=== PATIENT | female | born 1945 | race Hispanic/Latino ===

== ENCOUNTER 2017-06-01 11:55 | Emergency (ER) | payer OTHER ==
[~2017-06-01 11:55] MED LIST: ACET-2900 PO; CHOL100034 PO; CHOL100040 PO; CHRO1TAB8 PO; DULA0.75 SQ; FENO160 PO; FENO160T16 PO; FOLI0.8T22 PO; FOLI1TAB85 PO; GLIP5TAB97 PO; GLUC1CAP14 PO; GLUC1TAB21 PO; HYDR-4154 PO; INSREG SQ; NPH,100V11; NPH,100V11 SQ; PRAV20TA4 PO; SPIR25TA PO; SPIR25TA6 PO; TRAM50TA2 PO; TRAM50TA4 PO
[2017-06-01 12:33] LABS: APPEARANCE,URINE Cloudy (CLEAR); BILIRUBIN,URINE Negative (NEGATIVE); COLOR,URINE Red (YELLOW); GLUCOSE, URINE (UA) 250 mg/dL (NEGATIVE); KETONES,URINE Negative (NEGATIVE); LEUKOCYTE ESTERASE ,URINE Trace (NEGATIVE); NITRATE,URINE Negative (NEGATIVE); OCCULT BLOOD,URINE Large (NEGATIVE); PROTEIN,URINE Trace (NEGATIVE); UROBILINOGEN,URINE 0.2 mg/dL (0.2-1.0)
[2017-06-01 12:39] LABS: BASOPHILS % (AUTO) 0.7 % (0.0-5.0); EOSINOPHILS % (AUTO) 1.4 % (0.0-8.0); HEMATOCRIT 33.5 % (36-48); LYMPHOCYTES % (AUTO) 22.9 % (21.0-51.0); MEAN CORPUSCULAR HEMOGLOBIN 31.4 pg (27.0-33.0); MEAN CORPUSCULAR HGB CONC 34.7 g/dL (32.0-36.0); MEAN CORPUSCULAR VOLUME 90.6 fL (79-99); MONOCYTES % (AUTO) 6.1 % (3.0-13.0); NEUTROPHILS % (AUTO) 68.9 % (40.0-77.0); PLATELET COUNT (AUTO) 316 K/uL (130-400); RED CELL DISTRIBUTION WIDTH 13.5 % (11.0-15.5); WHITE BLOOD COUNT (AUTO) 9.3 K/uL (4.8-10.8)
[2017-06-01 12:40] LABS: CREATININE 1.4 mg/dL (0.5-1.5); POTASSIUM 4.9 mmol/L (3.5-5.1)
[2017-06-01 12:53] LABS: ALBUMIN 3.8 g/dL (3.5-5.0); BILIRUBIN,TOTAL 0.4 mg/dL (0.2-1.0); CREATINE KINASE MB 1.9 ng/mL (0.5-3.6); INR 1.02 (0.85-1.15); PARTIAL THROMBOPLASTIN TIME 23.7 SEC (26.3-35.5); PROTHROMBIN TIME 10.7 SEC (9.6-11.6); TOTAL PROTEIN, SERUM 7.8 g/dL (6.0-8.3)
[2017-06-01 13:52] LABS: BACTERIA,URINE Rare /HPF (None Seen); RBC,URINE >100 /HPF (0-1); SQUAMOUS EPITHELIAL CELL,UR Rare /HPF (0-2); WBC,URINE None Seen /HPF (0-1)
[2017-06-01] MEDS ORDERED: LEVOFLOXACIN 500 MG TABLET ONE (15:18)
== END 2017-06-01 15:26 | disposition home or self-care (01) ==
LOC: EDH 11:55
DX: N32.9 Bladder disorder, unspecified (principal); R31.9 Hematuria, unspecified; E11.9 Type 2 diabetes mellitus without complications; I10 Essential (primary) hypertension; E78.5 Hyperlipidemia, unspecified; I25.810 Atherosclerosis of coronary artery bypass graft(s) without angina pectoris; Z95.1 Presence of aortocoronary bypass graft; Z91.041 Radiographic dye allergy status; Z91.040 Latex allergy status; Z88.1 Allergy status to other antibiotic agents
CPT/HCPCS: 36415; 74176; 80053; 81001; 82550; 82553; 84484; 85025; 85610; 85730; 87088; 93005

== ENCOUNTER 2017-12-26 12:36 | Emergency (ER) | payer OTHER ==
[2017-12-26 13:12] LABS: EOSINOPHILS % (AUTO) 1.3 % (0.0-8.0); LYMPHOCYTES % (AUTO) 19.8 % (21.0-51.0); MEAN CORPUSCULAR HEMOGLOBIN 31.6 pg (27.0-33.0); MEAN CORPUSCULAR HGB CONC 34.4 g/dL (32.0-36.0); MONOCYTES % (AUTO) 6.4 % (3.0-13.0); NEUTROPHILS % (AUTO) 71.5 % (40.0-77.0); PLATELET COUNT (AUTO) 250 K/uL (130-400); RED BLOOD CELL COUNT(AUTO) 3.37 MIL/uL (4.00-5.50); RED CELL DISTRIBUTION WIDTH 13.3 % (11.0-15.5); WHITE BLOOD COUNT (AUTO) 9.8 K/uL (4.8-10.8)
[2017-12-26 13:20] LABS: CREATININE 1.4 mg/dL (0.5-1.5); POTASSIUM 4.1 mmol/L (3.5-5.1)
[2017-12-26 13:25] LABS: ALBUMIN 3.3 g/dL (3.5-5.0); BILIRUBIN,TOTAL 0.4 mg/dL (0.2-1.0); TOTAL PROTEIN, SERUM 7.1 g/dL (6.0-8.3)
[2017-12-26 13:33] LABS: B-TYPE NATRIURETIC PEPTIDE 131 pg/mL (0-100)
[2017-12-26] MEDS ORDERED: ALBUTEROL SULFATE 0.083% 2.5 MG/3 ML INH IH ONE (13:48)
== END 2017-12-26 15:51 | disposition home or self-care (01) ==
LOC: EDH 12:36
DX: J20.9 Acute bronchitis, unspecified (principal); R06.00 Dyspnea, unspecified; I25.10 Atherosclerotic heart disease of native coronary artery without angina pectoris; E11.9 Type 2 diabetes mellitus without complications; E78.5 Hyperlipidemia, unspecified; I10 Essential (primary) hypertension; Z95.1 Presence of aortocoronary bypass graft; Z88.1 Allergy status to other antibiotic agents; Z91.041 Radiographic dye allergy status; Z91.040 Latex allergy status
CPT/HCPCS: 36415; 71046; 80053; 83880; 84484; 85025; 87252; 87804; 93005; 94640

== ENCOUNTER 2018-08-31 23:29 | Observation (INO) | payer OTHER ==
[~2018-08-31] VITALS: Ht 152.4 cm; Wt 97.5 kg
[~2018-08-31 23:29] MED LIST changes: +ALBU1.252 IH; +AMOX1TAB16 PO; +ASCO500T96 PO; +ATOR10TA69 PO; +CARV6.25 PO; -CHOL100034 PO; -CHRO1TAB8 PO; +CLOP75TA32 PO; -DULA0.75 SQ; -FENO160 PO; +FERR-82 PO; -FOLI1TAB85 PO; +FURO20TA4 PO; +GLIP10TA19 PO; -GLIP5TAB97 PO; -GLUC1TAB21 PO; -HYDR-4154 PO; -INSREG SQ; +INSU100I35 SQ; +LOSA50TA64 PO; -NPH,100V11; -NPH,100V11 SQ; -PRAV20TA4 PO; +PRED20B PO; -SPIR25TA PO; -SPIR25TA6 PO; -TRAM50TA4 PO
[2018-09-01 00:15] LABS: BASOPHILS % (AUTO) 2.6 % (0.0-5.0); EOSINOPHILS % (AUTO) 3.2 % (0.0-8.0); HEMATOCRIT 31.6 % (36-48); LYMPHOCYTES % (AUTO) 16.7 % (21.0-51.0); MEAN CORPUSCULAR HEMOGLOBIN 31.1 pg (27.0-33.0); MEAN CORPUSCULAR HGB CONC 33.5 g/dL (32.0-36.0); MEAN CORPUSCULAR VOLUME 92.7 fL (79-99); MONOCYTES % (AUTO) 7.7 % (3.0-13.0); NEUTROPHILS % (AUTO) 69.8 % (40.0-77.0); PLATELET COUNT (AUTO) 224 K/uL (130-400); RED CELL DISTRIBUTION WIDTH 13.6 % (11.0-15.5); WHITE BLOOD COUNT (AUTO) 10.2 K/uL (4.8-10.8)
[2018-09-01 00:17] LABS: APPEARANCE,URINE Clear (CLEAR); BILIRUBIN,URINE Negative (NEGATIVE); COLOR,URINE Yellow (YELLOW); GLUCOSE, URINE (UA) >=1000 mg/dL (NEGATIVE); KETONES,URINE Negative (NEGATIVE); LEUKOCYTE ESTERASE ,URINE Negative (NEGATIVE); NITRATE,URINE Negative (NEGATIVE); OCCULT BLOOD,URINE Negative (NEGATIVE); PH,URINE 6.5 (5.0-8.0); PROTEIN,URINE Negative (NEGATIVE)
[2018-09-01 00:22] LABS: CREATININE 1.4 mg/dL (0.5-1.5); POTASSIUM 4.4 mmol/L (3.5-5.1)
[2018-09-01 00:40] LABS: BILIRUBIN,TOTAL 0.3 mg/dL (0.2-1.0)
[2018-09-01 00:41] LABS: ALBUMIN 3.5 g/dL (3.5-5.0); TOTAL PROTEIN, SERUM 7.7 g/dL (6.0-8.3)
[2018-09-01 00:48] LABS: INR 1.03 (0.85-1.15); PARTIAL THROMBOPLASTIN TIME 21.1 SEC (26.3-35.5); PROTHROMBIN TIME 10.8 SEC (9.6-11.6)
[2018-09-01] MEDS ORDERED: ASPIRIN 325 MG TABLET ONE (01:33)
[2018-09-01] MEDS ORDERED: INSULIN HUMULIN R 100 UNIT/ML 3ML ONE (01:56)
[2018-09-01 03:30] VITALS: BP 139/64
[2018-09-01 04:41] LABS: HEMATOCRIT 30.5 % (36-48); MEAN CORPUSCULAR HEMOGLOBIN 31.7 pg (27.0-33.0); MEAN CORPUSCULAR HGB CONC 34.1 g/dL (32.0-36.0); MEAN CORPUSCULAR VOLUME 93.1 fL (79-99); PLATELET COUNT (AUTO) 235 K/uL (130-400); RED BLOOD CELL COUNT(AUTO) 3.28 MIL/uL (4.00-5.50); RED CELL DISTRIBUTION WIDTH 13.4 % (11.0-15.5); WHITE BLOOD COUNT (AUTO) 10.9 K/uL (4.8-10.8)
[2018-09-01 05:04] LABS: ALBUMIN 3.4 g/dL (3.5-5.0); BILIRUBIN,TOTAL 0.4 mg/dL (0.2-1.0); CREATININE 1.3 mg/dL (0.5-1.5); PHOSPHORUS 2.7 mg/dL (2.5-4.9); POTASSIUM 4.2 mmol/L (3.5-5.1); TOTAL PROTEIN, SERUM 7.1 g/dL (6.0-8.3)
[2018-09-01] MEDS ORDERED: ACETAMINOPHEN 325 MG TAB PO PRN (05:15)
[2018-09-01] MEDS ORDERED: NITROGLYCERIN 0.4 MG SL TAB SL PRN (05:30)
[2018-09-01] MEDS ORDERED: ONDANSETRON HCL 4 MG/2 ML VIAL IVP PRN (05:30)
[2018-09-01] MEDS ORDERED: IPRATROPIUM/ALBUTEROL SULFATE 3 ML SOLUTION IH PRN (06:15)
[2018-09-01 08:00] VITALS: BP 140/59
[2018-09-01] MEDS ORDERED: ASPIRIN 325 MG TABLET PO SCH (09:00)
[2018-09-01] MEDS ORDERED: MAGNESIUM 2GM PREMIX 50ML 50 ML IV PRN (11:30)
[2018-09-01 12:00] VITALS: BP 108/48
[2018-09-01] MEDS ORDERED: ACETAMINOPHEN EXTENDED RELEASE 650 MG TABLET PO PRN (12:00)
[2018-09-01] MEDS ORDERED: TRAMADOL HCL 50 MG TABLET PO PRN (12:00)
[2018-09-01] MEDS ORDERED: ALBUTEROL SULFATE 0.042% 1.25 MG/3 ML INH IH PRN (12:15)
[2018-09-01] MEDS ORDERED: IBUPROFEN 600 MG TABLET PO ONE ×2 (14:00→14:15)
[2018-09-01] MEDS ORDERED: NAPROXEN 250 MG TAB PO PRN (14:00)
[2018-09-01 16:00] VITALS: BP 138/59
[2018-09-01] MEDS ORDERED: INSULIN HUMULIN 70/30 100 UNIT/ML 3ML SQ SCH (16:30)
--- NOTE | 2018-09-01 18:00 | NUR ---
DISCHARGE INSTRUCTIONS GIVEN. PATIENT MAG AT 2.10. PATIENT VOICES NO COMPLAINT OF CHEST PAIN . INSTRUCTED TO FOLLOW UP WITH PCP AND MARKETING REPS SPORTS AND ENTERTAINMENT . ALL QUESTIONS ANSWERED.. IV DISCONTINUED WITH INNER CANNULA INTACT. .
[2018-09-01] MEDS ORDERED: CLOPIDOGREL BISULFATE 75 MG TAB PO SCH (21:00)
[2018-09-01] MEDS ORDERED: CARVEDILOL 6.25 MG TABLET PO SCH (21:00)
[2018-09-01] MEDS ORDERED: ATORVASTATIN CALCIUM 10 MG TABLET PO SCH (21:00)
[2018-09-02] MEDS ORDERED: GLIPIZIDE XL 10MG TAB PO SCH (07:30)
[2018-09-02] MEDS ORDERED: FOLIC ACID/VITAMIN B COMP W-C 1 MG CAP/TAB PO SCH (09:00)
[2018-09-02] MEDS ORDERED: ASCORBIC ACID 500 MG TAB PO SCH (09:00)
[2018-09-02] MEDS ORDERED: GLUCOSAMINE-CHONDROITIN PO SCH (09:00)
[2018-09-02] MEDS ORDERED: **HM** FENOFIBRATE 160MG PO SCH (09:00)
[2018-09-02] MEDS ORDERED: FERROUS SULFATE 325 MG TABLET.DR PO SCH (09:00)
[2018-09-02] MEDS ORDERED: FUROSEMIDE 20 MG TABLET PO SCH (09:00)
[2018-09-02] MEDS ORDERED: **HM** VIT D3 1000 UNITS PO SCH (09:00)
[2018-09-02] MEDS ORDERED: LOSARTAN 50 MG TABLET PO SCH (09:00)
== END 2018-09-01 18:15 | disposition home or self-care (01) ==
LOC: EDH 23:29 → EDHIP 09-01 01:19 → 3DH 09-01 04:12
PROVIDERS: ADMIT Internal Medicine Critical Care Medicine; ATTEND Internal Medicine Critical Care Medicine
DX: R07.89 Other chest pain (principal); E11.9 Type 2 diabetes mellitus without complications; E66.9 Obesity, unspecified; E78.5 Hyperlipidemia, unspecified; I10 Essential (primary) hypertension; I25.10 Atherosclerotic heart disease of native coronary artery without angina pectoris; I44.4 Left anterior fascicular block; M79.7 Fibromyalgia; Z95.1 Presence of aortocoronary bypass graft; Z79.899 Other long term (current) drug therapy
CPT/HCPCS: 36415 ×2; 71045; 80053 ×2; 81003; 82550; 82948 ×3; 83735 ×2; 83874; 84100; 84484 ×3; 85025; 85027; 85610; 85730; 93005; 94640; 94664; 96365; 96366; 96372; 99284; G0378 ×16; J1815 ×2; J3475

== ENCOUNTER 2018-12-01 11:30 | Emergency (ER) | payer OTHER ==
[~2018-12-01 11:30] MED LIST changes: -ACET-2900 PO; +ACET-3194 PO
[2018-12-01 11:54] LABS: APPEARANCE,URINE TURBID (CLEAR); BILIRUBIN,URINE MODERATE (NEGATIVE); COLOR,URINE RED (YELLOW); GLUCOSE, URINE (UA) NEGATIVE (NEGATIVE); KETONES,URINE 15 mg/dL (NEGATIVE); LEUKOCYTE ESTERASE ,URINE MODERATE (NEGATIVE); NITRATE,URINE POSITIVE (NEGATIVE); OCCULT BLOOD,URINE LARGE (NEGATIVE); PH,URINE 6.5 (5.0-8.0); PROTEIN,URINE >=300 mg/dL (NEGATIVE)
[2018-12-01 12:18] LABS: BASOPHILS % (AUTO) 0.7 % (0.0-5.0); EOSINOPHILS % (AUTO) 2.1 % (0.0-8.0); HEMATOCRIT 33.1 % (36-48); LYMPHOCYTES % (AUTO) 16.8 % (21.0-51.0); MEAN CORPUSCULAR HEMOGLOBIN 31.7 pg (27.0-33.0); MEAN CORPUSCULAR HGB CONC 34.3 g/dL (32.0-36.0); MEAN CORPUSCULAR VOLUME 92.5 fL (79-99); MONOCYTES % (AUTO) 6.1 % (3.0-13.0); NEUTROPHILS % (AUTO) 74.3 % (40.0-77.0); PLATELET COUNT (AUTO) 238 K/uL (130-400); RED BLOOD CELL COUNT(AUTO) 3.58 MIL/uL (4.00-5.50); RED CELL DISTRIBUTION WIDTH 13.6 % (11.0-15.5); WHITE BLOOD COUNT (AUTO) 11.2 K/uL (4.8-10.8)
[2018-12-01 12:21] LABS: RBC,URINE TNTC /HPF (0-1)
[2018-12-01 12:25] LABS: BACTERIA,URINE Rare /HPF (None Seen)
[2018-12-01 12:26] LABS: SQUAMOUS EPITHELIAL CELL,UR Rare /HPF (0-2)
[2018-12-01 12:28] LABS: CREATININE 1.1 mg/dL (0.5-1.5); POTASSIUM 4.2 mmol/L (3.5-5.1)
[2018-12-01 12:30] LABS: INR 1.01 (0.85-1.15); PARTIAL THROMBOPLASTIN TIME 24.3 SEC (26.3-35.5); PROTHROMBIN TIME 10.6 SEC (9.6-11.6)
[2018-12-01 12:33] LABS: ALBUMIN 3.5 g/dL (3.5-5.0); BILIRUBIN,TOTAL 0.4 mg/dL (0.2-1.0); TOTAL PROTEIN, SERUM 7.7 g/dL (6.0-8.3)
== END 2018-12-01 17:04 | disposition home or self-care (01) ==
LOC: EDH 11:30
DX: N39.0 Urinary tract infection, site not specified (principal); R31.9 Hematuria, unspecified; E11.9 Type 2 diabetes mellitus without complications; E78.5 Hyperlipidemia, unspecified; I10 Essential (primary) hypertension; I25.10 Atherosclerotic heart disease of native coronary artery without angina pectoris; Z95.1 Presence of aortocoronary bypass graft; Z88.1 Allergy status to other antibiotic agents; Z91.041 Radiographic dye allergy status; Z91.040 Latex allergy status; Z72.0 Tobacco use
CPT/HCPCS: 36415; 74176; 80053; 81001; 85025; 85610; 85730; 87088

== ENCOUNTER 2018-12-02 17:58 | Emergency (ER) | payer OTHER | END 2018-12-02 23:44 | disposition home or self-care (01) | LOC: EDH 17:58 | DX: R33.9 Retention of urine, unspecified (principal); E11.9 Type 2 diabetes mellitus without complications; I10 Essential (primary) hypertension; I25.10 Atherosclerotic heart disease of native coronary artery without angina pectoris; E78.5 Hyperlipidemia, unspecified; Z88.1 Allergy status to other antibiotic agents; Z91.041 Radiographic dye allergy status; Z91.040 Latex allergy status | CPT/HCPCS: 51702; 82948 ==

== ENCOUNTER 2019-02-15 16:41 | Emergency (ER) | payer OTHER ==
[2019-02-15 17:19] LABS: BASOPHILS % (AUTO) 0.4 % (0.0-5.0); EOSINOPHILS % (AUTO) 2.6 % (0.0-8.0); LYMPHOCYTES % (AUTO) 18.6 % (21.0-51.0); MEAN CORPUSCULAR HGB CONC 32.4 g/dL (32.0-36.0); MEAN CORPUSCULAR VOLUME 92.6 fL (79-99); MONOCYTES % (AUTO) 7.7 % (3.0-13.0); NEUTROPHILS % (AUTO) 70.3 % (40.0-77.0); PLATELET COUNT (AUTO) 205 K/uL (130-400); RED BLOOD CELL COUNT(AUTO) 3.67 MIL/uL (4.00-5.50); RED CELL DISTRIBUTION WIDTH 12.8 % (11.0-15.5); WHITE BLOOD COUNT (AUTO) 9.2 K/uL (4.8-10.8)
[2019-02-15 17:40] LABS: PARTIAL THROMBOPLASTIN TIME 24.7 SEC (26.3-35.5); PROTHROMBIN TIME 10.5 SEC (9.6-11.6)
[2019-02-15 17:41] LABS: ALBUMIN 3.2 g/dL (3.5-5.0); BILIRUBIN,TOTAL 0.5 mg/dL (0.2-1.0); TOTAL PROTEIN, SERUM 7.1 g/dL (6.0-8.3)
== END 2019-02-15 19:34 | disposition home or self-care (01) ==
LOC: EDH 16:41
DX: M79.662 Pain in left lower leg (principal); Z87.2 Personal history of diseases of the skin and subcutaneous tissue; I10 Essential (primary) hypertension; E11.9 Type 2 diabetes mellitus without complications; I25.10 Atherosclerotic heart disease of native coronary artery without angina pectoris; E78.5 Hyperlipidemia, unspecified; M79.7 Fibromyalgia; Z91.040 Latex allergy status; Z88.1 Allergy status to other antibiotic agents
CPT/HCPCS: 36415; 80053; 85025; 85610; 85730; 93971

== ENCOUNTER 2019-08-02 16:04 | Emergency (ER) | payer OTHER ==
[2019-08-02] MEDS ORDERED: ALBUTEROL SULFATE 0.083% 2.5 MG/3 ML INH IH ONE (16:49)
[2019-08-02 17:00] LABS: BASOPHILS % (AUTO) 0.6 % (0.0-5.0); EOSINOPHILS % (AUTO) 2.6 % (0.0-8.0); HEMATOCRIT 36.8 % (36-48); LYMPHOCYTES % (AUTO) 15.3 % (21.0-51.0); MEAN CORPUSCULAR HEMOGLOBIN 30.4 pg (27.0-33.0); MEAN CORPUSCULAR HGB CONC 33.2 g/dL (32.0-36.0); MEAN CORPUSCULAR VOLUME 91.8 fL (79-99); MONOCYTES % (AUTO) 8.4 % (3.0-13.0); NEUTROPHILS % (AUTO) 72.4 % (40.0-77.0); PLATELET COUNT (AUTO) 225 K/uL (130-400); RED BLOOD CELL COUNT(AUTO) 4.01 MIL/uL (4.00-5.50); RED CELL DISTRIBUTION WIDTH 12.8 % (11.0-15.5)
[2019-08-02 17:01] LABS: CREATININE 1.1 mg/dL (0.5-1.5); POTASSIUM 4.2 mmol/L (3.5-5.1)
== END 2019-08-02 18:45 | disposition home or self-care (01) ==
LOC: EDH 16:04
DX: J20.8 Acute bronchitis due to other specified organisms (principal); R42 Dizziness and giddiness; E11.9 Type 2 diabetes mellitus without complications; E78.5 Hyperlipidemia, unspecified; I10 Essential (primary) hypertension; I25.10 Atherosclerotic heart disease of native coronary artery without angina pectoris; Z91.041 Radiographic dye allergy status; Z91.040 Latex allergy status; Z88.1 Allergy status to other antibiotic agents
CPT/HCPCS: 36415; 70450; 71046; 80048; 82948; 84484; 85025; 93005; 94640

== ENCOUNTER → 2019-10-02 | Outpatient (CLI) | payer OTHER | END | disposition home or self-care (01) | LOC: SHCH 13:19 | PROVIDERS: ATTEND Internal Medicine Cardiovascular Disease | DX: I34.0 Nonrheumatic mitral (valve) insufficiency (principal); I50.32 Chronic diastolic (congestive) heart failure; R60.9 Edema, unspecified | CPT/HCPCS: 93306; 93971 ==

== ENCOUNTER → 2020-07-01 | Outpatient (CLI) | payer OTHER | END | disposition home or self-care (01) | LOC: SHCH 10:24 | PROVIDERS: ATTEND Internal Medicine Cardiovascular Disease | DX: I87.2 Venous insufficiency (chronic) (peripheral) (principal) | CPT/HCPCS: 93970 ==

== ENCOUNTER 2020-07-11 22:46 | Inpatient (IN) | payer OTHER ==
[~2020-07-11] VITALS: Ht 152.4 cm; Wt 97.0 kg
[2020-07-11 23:08] LABS: BASOPHILS % (AUTO) 0.7 % (0.0-5.0); EOSINOPHILS % (AUTO) 2.6 % (0.0-8.0); HEMATOCRIT 35.2 % (36-48); MEAN CORPUSCULAR HEMOGLOBIN 29.9 pg (27.0-33.0); MEAN CORPUSCULAR HGB CONC 32.1 g/dL (32.0-36.0); MEAN CORPUSCULAR VOLUME 93.1 fL (79-99); NEUTROPHILS % (AUTO) 70.2 % (40.0-77.0); PLATELET COUNT (AUTO) 239 K/uL (130-400); RED BLOOD CELL COUNT(AUTO) 3.78 MIL/uL (4.00-5.50); RED CELL DISTRIBUTION WIDTH 13.5 % (11.0-15.5); WHITE BLOOD COUNT (AUTO) 12.1 K/uL (4.8-10.8)
[2020-07-11 23:15] LABS: CREATININE 1.4 mg/dL (0.5-1.5); INR 0.99 (0.85-1.15); POTASSIUM 5.3 mmol/L (3.5-5.1); PROTHROMBIN TIME 10.8 SEC (9.6-11.6)
[2020-07-11 23:16] LABS: PARTIAL THROMBOPLASTIN TIME 24.1 SEC (26.3-35.5)
[2020-07-11 23:20] LABS: ALBUMIN 3.5 g/dL (3.5-5.0); BILIRUBIN,TOTAL 0.2 mg/dL (0.2-1.0); TOTAL PROTEIN, SERUM 7.9 g/dL (6.0-8.3)
[2020-07-12 00:25] LABS: APPEARANCE,URINE Clear (CLEAR); BILIRUBIN,URINE Negative (NEGATIVE); COLOR,URINE Yellow (YELLOW); GLUCOSE, URINE (UA) 500 mg/dL (NEGATIVE); KETONES,URINE Negative (NEGATIVE); LEUKOCYTE ESTERASE ,URINE Negative (NEGATIVE); NITRATE,URINE Negative (NEGATIVE); OCCULT BLOOD,URINE Negative (NEGATIVE); PH,URINE 6.5 (5.0-8.0); PROTEIN,URINE Negative (NEGATIVE)
[2020-07-12 00:42] LABS: BACTERIA,URINE None Seen /HPF (None Seen); RBC,URINE None Seen /HPF (0-1); SQUAMOUS EPITHELIAL CELL,UR Rare /HPF (0-2); WBC,URINE None Seen /HPF (0-1); YEAST,URINE BUDDING None Seen /HPF (None Seen)
[2020-07-12] MEDS ORDERED: ZOLPIDEM TARTRATE 5 MG TAB PO PRN (05:30)
[2020-07-12] MEDS ORDERED: MORPHINE SULFATE 2 MG/ML 1ML SYG IV PRN (05:30)
[2020-07-12] MEDS ORDERED: ONDANSETRON HCL 4 MG/2 ML VIAL IV PRN (05:30)
[2020-07-12] MEDS ORDERED: GUAIFENESIN-DM 200/20 MG 10 ML PO PRN (05:30)
[2020-07-12] MEDS ORDERED: ACETAMINOPHEN 325 MG TAB PO PRN ×2 (05:30)
[2020-07-12] MEDS: NITROGLYCERIN 1GM/1 INCH PACKET TD SCH ×4 (05:30→23:51)
[2020-07-12] MEDS ORDERED: NITROGLYCERIN 0.4 MG SL TAB SL PRN (05:30)
[2020-07-12] MEDS ORDERED: VANCOMYCIN 1GM+NS 250ML 250 ML IV SCH ×2 (05:45→08:15)
[2020-07-12] MEDS ORDERED: SODIUM CHLORIDE 0.9% 250 ML IV SCH (08:15)
[2020-07-12] MEDS ORDERED: ASPIRIN 325 MG TABLET PO SCH (09:00)
[2020-07-12 10:06] LABS: POTASSIUM 4.8 mmol/L (3.5-5.1)
[2020-07-12] MEDS ORDERED: METO-408 PO (10:24)
[2020-07-12] MEDS ORDERED: FOLI1TAB85 PO (10:24)
[2020-07-12] MEDS ORDERED: LOSA50TA64 PO (10:24)
[2020-07-12] MEDS ORDERED: ACET-2521 PO (11:38)
[2020-07-12] MEDS ORDERED: FURO40TA5 PO (11:38)
[2020-07-12] MEDS ORDERED: FLUT16H NS (11:38)
[2020-07-12] MEDS ORDERED: NPH,100V11 SQ (11:38)
[2020-07-12] MEDS ORDERED: AEC81 PO (11:38)
[2020-07-12] MEDS ORDERED: [UNRECOGNIZED DRUG - CODE] PO (11:38)
[2020-07-12] MEDS ORDERED: TRAM50TA4 PO (11:38)
[2020-07-12] MEDS ORDERED: IPRA3AMP24 IH (11:38)
[2020-07-12] MEDS ORDERED: CHOL100040 PO (11:38)
[2020-07-12] MEDS ORDERED: FERR-82 PO (11:38)
[2020-07-12] MEDS ORDERED: ATOR10 PO (11:38)
[2020-07-12] MEDS ORDERED: ASCO250T70 PO (11:38)
[2020-07-12] MEDS ORDERED: ASPIRIN 81MG TAB.CHEW ONE (11:41)
[2020-07-12] MEDS ORDERED: ACETAMINOPHEN EXTENDED RELEASE 650 MG TABLET PO PRN (11:45)
[2020-07-12] MEDS ORDERED: IPRATROPIUM/ALBUTEROL SULFATE 3 ML SOLUTION IH SCH (11:45)
[2020-07-12] MEDS: ENOXAPARIN SODIUM 40 MG/0.4 ML SYRINGE SQ SCH (11:47)
[2020-07-12] MEDS: FAMOTIDINE/PF 20 MG/2 ML VIAL IV SCH (11:47)
[2020-07-12] MEDS ORDERED: ASCORBIC ACID 500 MG TAB PO SCH (13:02)
[2020-07-12 13:24] VITALS: BP 126/60
[2020-07-12] MEDS: FLUTICASONE PROPIONATE 50MCG/SPRAY 16 GM BOTTLE NS SCH (14:04)
[2020-07-12] MEDS: ZOSYN 3.375GM+NS 50ML 50 ML IV SCH ×2 (14:04→19:52)
[2020-07-12] MEDS: ***HM***(Cholecalciferol (Vitamin D3) (Vitamin D3) 1,000 UNIT) PO SCH (14:05)
[2020-07-12 16:35] VITALS: BP 130/41
[2020-07-12] MEDS: INSULIN HUMULIN 70/30 100 UNIT/ML 3ML SQ SCH (17:26)
[2020-07-12 19:05] VITALS: BP 139/95
[2020-07-12] MEDS ORDERED: CLOPIDOGREL BISULFATE 75 MG TAB ONE (19:30)
[2020-07-12] MEDS ORDERED: CARVEDILOL 6.25 MG TABLET PO ONE (19:31)
[2020-07-12] MEDS ORDERED: ATORVASTATIN CALCIUM 20 MG TABLET ONE (19:31)
[2020-07-12] MEDS: CARVEDILOL 6.25 MG TABLET PO SCH (19:51)
[2020-07-12] MEDS: ATORVASTATIN CALCIUM 10 MG TABLET PO SCH (19:52)
[2020-07-12] MEDS: FENOFIBRATE 160 MG PO SCH (19:52)
[2020-07-12] MEDS: CLOPIDOGREL BISULFATE 75 MG TAB PO SCH (19:53)
[2020-07-12] MEDS: TRAMADOL HCL 50 MG TABLET PO SCH (19:53)
[2020-07-12] MEDS ORDERED: SODIUM CHLORIDE 0.9% 250 ML IV ONE (22:32)
[2020-07-12] MEDS: IPRATROPIUM/ALBUTEROL SULFATE 3 ML SOLUTION IH SCH (23:17)
[2020-07-12 23:31] VITALS: BP 119/60
[2020-07-12] MEDS: VANCOMYCIN 1GM+NS 250ML 250 ML IV SCH (23:41)
[2020-07-13 03:20] VITALS: BP 124/53
[2020-07-13] MEDS: ZOSYN 3.375GM+NS 50ML 50 ML IV SCH ×3 (03:51→20:42)
[2020-07-13 03:57] LABS: CREATININE 1.1 mg/dL (0.5-1.5); POTASSIUM 4.9 mmol/L (3.5-5.1)
[2020-07-13 05:15] LABS: HEMATOCRIT 32.2 % (36-48); MEAN CORPUSCULAR HGB CONC 32.6 g/dL (32.0-36.0); RED BLOOD CELL COUNT(AUTO) 3.39 MIL/uL (4.00-5.50); RED CELL DISTRIBUTION WIDTH 13.3 % (11.0-15.5); WHITE BLOOD COUNT (AUTO) 9.4 K/uL (4.8-10.8)
[2020-07-13] MEDS ORDERED: FERROUS SULFATE 325 MG TABLET.DR ONE (05:34)
[2020-07-13] MEDS: FERROUS SULFATE 325 MG TABLET.DR PO SCH (06:04)
[2020-07-13] MEDS: INSULIN HUMULIN 70/30 100 UNIT/ML 3ML SQ SCH ×2 (06:04→16:22)
[2020-07-13] MEDS: IPRATROPIUM/ALBUTEROL SULFATE 3 ML SOLUTION IH SCH ×4 (06:51→23:50)
[2020-07-13 07:30] VITALS: BP 116/52
[2020-07-13] MEDS: FAMOTIDINE/PF 20 MG/2 ML VIAL IV SCH (08:39)
[2020-07-13] MEDS: LOSARTAN 50 MG TABLET PO SCH (08:39)
[2020-07-13] MEDS: ASPIRIN 81 MG EC TAB PO SCH (08:39)
[2020-07-13] MEDS: FUROSEMIDE 40 MG TABLET PO SCH (08:39)
[2020-07-13] MEDS: ASCORBIC ACID 500 MG TAB PO SCH (08:40)
[2020-07-13] MEDS: CARVEDILOL 6.25 MG TABLET PO SCH ×2 (08:41→20:44)
[2020-07-13] MEDS: Vitamin B Complex/Vit C/Folic Acid PO SCH (08:42)
[2020-07-13] MEDS: GLUCOSAMINE-CHONDROITIN PO SCH (08:42)
[2020-07-13] MEDS: ENOXAPARIN SODIUM 40 MG/0.4 ML SYRINGE SQ SCH (08:42)
[2020-07-13] MEDS: ***HM***(Cholecalciferol (Vitamin D3) (Vitamin D3) 1,000 UNIT) PO SCH (08:49)
[2020-07-13] MEDS ORDERED: NON-FORMULARY MEDICATION 1 EACH (Vit B Cmplx 3/FA/Vit C/Biotin (Rena-Vite Rx Tablet) 1 EAC PO SCH (09:00)
[2020-07-13] MEDS: FLUTICASONE PROPIONATE 50MCG/SPRAY 16 GM BOTTLE NS SCH (09:00)
[2020-07-13] MEDS ORDERED: PREDNISONE 20 MG TABLET PO SCH (09:00)
[2020-07-13] MEDS ORDERED: METOPROLOL SUCCINATE 50 MG TAB.SR.24H PO SCH (09:00)
[2020-07-13 11:00] VITALS: BP 120/56
[2020-07-13] MEDS: NITROGLYCERIN 1GM/1 INCH PACKET TD SCH ×2 (13:09→21:30)
[2020-07-13 16:00] VITALS: BP 120/52
[2020-07-13] MEDS ORDERED: SODIUM CHLORIDE 0.9% 250 ML IV ONE (17:12)
[2020-07-13] MEDS: PREDNISONE 20 MG TABLET PO SCH ×2 (17:14→20:43)
[2020-07-13] MEDS: MONTELUKAST SODIUM 10 MG TAB PO SCH (17:14)
[2020-07-13] MEDS: VANCOMYCIN 1GM+NS 250ML 250 ML IV SCH (17:15)
[2020-07-13 20:28] VITALS: BP 130/59
[2020-07-13] MEDS: CLOPIDOGREL BISULFATE 75 MG TAB PO SCH (20:43)
[2020-07-13] MEDS: ATORVASTATIN CALCIUM 10 MG TABLET PO SCH (20:43)
[2020-07-13] MEDS: DOCUSATE SODIUM 100 MG CAP PO SCH (20:43)
[2020-07-13] MEDS: TRAMADOL HCL 50 MG TABLET PO SCH (20:44)
[2020-07-13] MEDS ORDERED: DEXTROSE 50%-WATER 50 ML DISP.SYRIN IV PRN (20:45)
[2020-07-13] MEDS ORDERED: GLUCAGON 1MG KIT 1 MG ML IM PRN (20:45)
[2020-07-13] MEDS ORDERED: INSULIN HUMULIN R 100 UNIT/ML 3ML SQ SCH (21:00)
[2020-07-13] MEDS: FENOFIBRATE 160 MG PO SCH (21:00)
[2020-07-13 23:48] VITALS: BP 120/72
[2020-07-14] VITALS (7 sets, daily range): BP systolic 109–149; BP diastolic 50–78
[2020-07-14 04:15] LABS: HEMATOCRIT 32.2 % (36-48); MEAN CORPUSCULAR HEMOGLOBIN 30.3 pg (27.0-33.0); MEAN CORPUSCULAR HGB CONC 32.9 g/dL (32.0-36.0); RED BLOOD CELL COUNT(AUTO) 3.5 MIL/uL (4.00-5.50); RED CELL DISTRIBUTION WIDTH 13.2 % (11.0-15.5); WHITE BLOOD COUNT (AUTO) 11.9 K/uL (4.8-10.8)
[2020-07-14 04:29] LABS: CREATININE 1.4 mg/dL (0.5-1.5)
[2020-07-14] MEDS: NITROGLYCERIN 1GM/1 INCH PACKET TD SCH ×4 (05:30→21:17)
[2020-07-14] MEDS: IPRATROPIUM/ALBUTEROL SULFATE 3 ML SOLUTION IH SCH ×3 (05:59→18:19)
[2020-07-14] MEDS: ZOSYN 3.375GM+NS 50ML 50 ML IV SCH ×3 (06:25→21:11)
[2020-07-14] MEDS: INSULIN HUMULIN 70/30 100 UNIT/ML 3ML SQ SCH ×2 (07:30→16:39)
[2020-07-14] MEDS: FERROUS SULFATE 325 MG TABLET.DR PO SCH (08:00)
[2020-07-14] MEDS: FLUTICASONE PROPIONATE 50MCG/SPRAY 16 GM BOTTLE NS SCH (09:00)
[2020-07-14] MEDS: MONTELUKAST SODIUM 10 MG TAB PO SCH (09:00)
[2020-07-14] MEDS ORDERED: SODIUM CHLORIDE 0.9% 1000ML 1,000 ML IV SCH (09:00)
[2020-07-14] MEDS: GLUCOSAMINE-CHONDROITIN PO SCH (09:00)
[2020-07-14] MEDS: Vitamin B Complex/Vit C/Folic Acid PO SCH (09:00)
[2020-07-14] MEDS: ***HM***(Cholecalciferol (Vitamin D3) (Vitamin D3) 1,000 UNIT) PO SCH (09:00)
[2020-07-14] MEDS: ASCORBIC ACID 500 MG TAB PO SCH (09:00)
[2020-07-14] MEDS: DOCUSATE SODIUM 100 MG CAP PO SCH ×2 (09:00→21:11)
[2020-07-14] MEDS: FUROSEMIDE 40 MG TABLET PO SCH (09:00)
[2020-07-14] MEDS ORDERED: SODIUM CHLORIDE 0.9% 250 ML IV ONE (10:41)
[2020-07-14] MEDS: VANCOMYCIN 1GM+NS 250ML 250 ML IV SCH (10:43)
[2020-07-14] MEDS: FAMOTIDINE/PF 20 MG/2 ML VIAL IV SCH (10:44)
[2020-07-14] MEDS: ASPIRIN 81 MG EC TAB PO SCH (10:44)
[2020-07-14] MEDS: DiphenhydrAMINE HCL 50 MG/ML VIAL IM SCH (10:44)
[2020-07-14] MEDS: PREDNISONE 20 MG TABLET PO SCH ×3 (10:44→21:12)
[2020-07-14] MEDS: ENOXAPARIN SODIUM 40 MG/0.4 ML SYRINGE SQ SCH (10:44)
[2020-07-14] MEDS: CARVEDILOL 6.25 MG TABLET PO SCH ×2 (10:45→21:13)
[2020-07-14] MEDS: LOSARTAN 50 MG TABLET PO SCH (10:45)
[2020-07-14] MEDS ORDERED: IOHEXOL-350 50ML VIAL IV ONE (13:41)
[2020-07-14] MEDS ORDERED: IOHEXOL 350 MG/ML 100ML INFUS..BTL IV ONE (13:41)
[2020-07-14] MEDS ORDERED: DiphenhydrAMINE HCL 50 MG/ML VIAL IV SCH (16:15)
[2020-07-14] MEDS: TRAMADOL HCL 50 MG TABLET PO SCH (21:00)
[2020-07-14] MEDS: FENOFIBRATE 160 MG PO SCH (21:00)
[2020-07-14] MEDS: VANCOMYCIN 500MG+NS 100ML 100 ML IV SCH (21:11)
[2020-07-14] MEDS: CLOPIDOGREL BISULFATE 75 MG TAB PO SCH (21:12)
[2020-07-14] MEDS: ATORVASTATIN CALCIUM 10 MG TABLET PO SCH (21:13)
[2020-07-15] MEDS: IPRATROPIUM/ALBUTEROL SULFATE 3 ML SOLUTION IH SCH ×4 (00:57→23:36)
[2020-07-15 03:54] VITALS: BP 133/61
[2020-07-15 05:06] LABS: HEMATOCRIT 29.9 % (36-48); MEAN CORPUSCULAR HEMOGLOBIN 30.3 pg (27.0-33.0); MEAN CORPUSCULAR HGB CONC 32.8 g/dL (32.0-36.0); MEAN CORPUSCULAR VOLUME 92.6 fL (79-99); RED BLOOD CELL COUNT(AUTO) 3.23 MIL/uL (4.00-5.50); RED CELL DISTRIBUTION WIDTH 13.5 % (11.0-15.5); WHITE BLOOD COUNT (AUTO) 11.3 K/uL (4.8-10.8)
[2020-07-15 05:15] LABS: CREATININE 1.2 mg/dL (0.5-1.5); POTASSIUM 5.7 mmol/L (3.5-5.1)
[2020-07-15] MEDS ORDERED: DEXTROSE 50%-WATER 50 ML DISP.SYRIN IV PRN (05:15)
[2020-07-15] MEDS ORDERED: GLUCAGON 1MG KIT 1 MG ML IM PRN (05:15)
[2020-07-15] MEDS: ZOSYN 3.375GM+NS 50ML 50 ML IV SCH ×3 (06:25→22:52)
[2020-07-15] MEDS: INSULIN HUMULIN 70/30 100 UNIT/ML 3ML SQ SCH ×3 (06:26→16:58)
[2020-07-15] MEDS: NITROGLYCERIN 1GM/1 INCH PACKET TD SCH (06:30)
[2020-07-15] MEDS: INSULIN HUMULIN R 100 UNIT/ML 3ML SQ SCH ×4 (06:32→20:33)
[2020-07-15] MEDS: SODIUM POLYSTYRENE SULFONATE 15 GM/60 ML ML PO SCH (07:30)
[2020-07-15 08:00] VITALS: BP 153/50
[2020-07-15] MEDS: DiphenhydrAMINE HCL 50 MG/ML VIAL IM SCH (09:00)
[2020-07-15] MEDS: ***HM***(Cholecalciferol (Vitamin D3) (Vitamin D3) 1,000 UNIT) PO SCH (09:00)
[2020-07-15] MEDS: FLUTICASONE PROPIONATE 50MCG/SPRAY 16 GM BOTTLE NS SCH (09:00)
[2020-07-15] MEDS: FAMOTIDINE/PF 20 MG/2 ML VIAL IV SCH (09:00)
[2020-07-15] MEDS: ASCORBIC ACID 500 MG TAB PO SCH (09:00)
[2020-07-15] MEDS: FUROSEMIDE 40 MG TABLET PO SCH (10:04)
[2020-07-15] MEDS: DOCUSATE SODIUM 100 MG CAP PO SCH ×2 (10:04→22:52)
[2020-07-15] MEDS: ASPIRIN 81 MG EC TAB PO SCH (10:05)
[2020-07-15] MEDS: MONTELUKAST SODIUM 10 MG TAB PO SCH (10:05)
[2020-07-15] MEDS: GLUCOSAMINE-CHONDROITIN PO SCH (10:05)
[2020-07-15] MEDS: LOSARTAN 50 MG TABLET PO SCH (10:05)
[2020-07-15] MEDS: Vitamin B Complex/Vit C/Folic Acid PO SCH (10:05)
[2020-07-15] MEDS: ENOXAPARIN SODIUM 40 MG/0.4 ML SYRINGE SQ SCH (10:07)
[2020-07-15] MEDS: FERROUS SULFATE 325 MG TABLET.DR PO SCH (10:45)
[2020-07-15] MEDS: VANCOMYCIN 500MG+NS 100ML 100 ML IV SCH (10:45)
[2020-07-15] MEDS: FUROSEMIDE 10 MG/ML 2ML VIAL IV SCH (10:46)
[2020-07-15 12:00] VITALS: BP 162/54
[2020-07-15 16:00] VITALS: BP 138/51
[2020-07-15] MEDS ORDERED: FUROSEMIDE 10 MG/ML 2ML VIAL IV SCH (16:00)
[2020-07-15 19:40] VITALS: BP 158/46
[2020-07-15] MEDS: FENOFIBRATE 160 MG PO SCH (21:00)
[2020-07-15] MEDS ORDERED: ATORVASTATIN CALCIUM 20 MG TABLET PO SCH (21:00)
[2020-07-15] MEDS: CLOPIDOGREL BISULFATE 75 MG TAB PO SCH (22:52)
[2020-07-15] MEDS: TRAMADOL HCL 50 MG TABLET PO SCH (22:53)
[2020-07-15 23:58] VITALS: BP 145/45
[2020-07-16 04:09] VITALS: BP 128/49
[2020-07-16 04:15] LABS: HEMATOCRIT 31.8 % (36-48); MEAN CORPUSCULAR VOLUME 90.9 fL (79-99); RED BLOOD CELL COUNT(AUTO) 3.5 MIL/uL (4.00-5.50); RED CELL DISTRIBUTION WIDTH 13.4 % (11.0-15.5); WHITE BLOOD COUNT (AUTO) 13.1 K/uL (4.8-10.8)
[2020-07-16 04:42] LABS: ALBUMIN 3.3 g/dL (3.5-5.0); BILIRUBIN,TOTAL 0.5 mg/dL (0.2-1.0); CREATININE 1.3 mg/dL (0.5-1.5); POTASSIUM 3.8 mmol/L (3.5-5.1)
[2020-07-16] MEDS: ZOSYN 3.375GM+NS 50ML 50 ML IV SCH ×2 (05:39→13:00)
[2020-07-16] MEDS: IPRATROPIUM/ALBUTEROL SULFATE 3 ML SOLUTION IH SCH ×2 (07:08→19:24)
[2020-07-16] MEDS: SODIUM POLYSTYRENE SULFONATE 15 GM/60 ML ML PO SCH (07:30)
[2020-07-16] MEDS: INSULIN HUMULIN R 100 UNIT/ML 3ML SQ SCH ×3 (07:30→17:16)
[2020-07-16 08:00] VITALS: BP 119/38
[2020-07-16] MEDS: DiphenhydrAMINE HCL 50 MG/ML VIAL IM SCH (08:29)
[2020-07-16] MEDS: ***HM***(Cholecalciferol (Vitamin D3) (Vitamin D3) 1,000 UNIT) PO SCH (08:30)
[2020-07-16] MEDS: FUROSEMIDE 10 MG/ML 2ML VIAL IV SCH (08:30)
[2020-07-16] MEDS: FAMOTIDINE/PF 20 MG/2 ML VIAL IV SCH (09:00)
[2020-07-16] MEDS ORDERED: METOPROLOL SUCCINATE 50 MG TAB.SR.24H PO SCH (09:00)
[2020-07-16] MEDS: ENOXAPARIN SODIUM 40 MG/0.4 ML SYRINGE SQ SCH (09:10)
[2020-07-16] MEDS: GLUCOSAMINE-CHONDROITIN PO SCH (09:12)
[2020-07-16] MEDS: ASPIRIN 81 MG EC TAB PO SCH (09:13)
[2020-07-16] MEDS: FUROSEMIDE 40 MG TABLET PO SCH (09:14)
[2020-07-16] MEDS: DOCUSATE SODIUM 100 MG CAP PO SCH (09:15)
[2020-07-16] MEDS: MONTELUKAST SODIUM 10 MG TAB PO SCH (09:15)
[2020-07-16] MEDS: FERROUS SULFATE 325 MG TABLET.DR PO SCH (09:15)
[2020-07-16] MEDS: ASCORBIC ACID 500 MG TAB PO SCH (09:16)
[2020-07-16] MEDS: INSULIN HUMULIN 70/30 100 UNIT/ML 3ML SQ SCH ×2 (09:22→17:15)
[2020-07-16] MEDS: Vitamin B Complex/Vit C/Folic Acid PO SCH (09:31)
[2020-07-16] MEDS: FLUTICASONE PROPIONATE 50MCG/SPRAY 16 GM BOTTLE NS SCH (09:51)
[2020-07-16 10:37] VITALS: BP 130/50
[2020-07-16 12:00] VITALS: BP 131/43
[2020-07-16] MEDS ORDERED: INSU10VI3 SQ ×2 (15:52)
[2020-07-16] MEDS ORDERED: IPRNEB IH (15:52)
[2020-07-16] MEDS ORDERED: CHOL-34 PO (15:52)
[2020-07-16] MEDS ORDERED: FLUT16H NASAL (15:52)
[2020-07-16 16:00] VITALS: BP 123/38
[2020-07-16] MEDS: LOSARTAN 50 MG TABLET PO SCH (17:17)
== END 2020-07-16 20:10 | disposition home or self-care (01) | DRG 602 ==
LOC: EDH 22:46 → EDHIP 07-12 05:19 → OBSVTOIN 07-12 05:19 → 4AH 07-12 08:40 → 4CH 07-15 15:13
PROVIDERS: ADMIT Internal Medicine Critical Care Medicine; ATTEND Internal Medicine Critical Care Medicine
DX: L03.116 Cellulitis of left lower limb (principal); I50.33 Acute on chronic diastolic (congestive) heart failure; Z68.41 Body mass index [BMI] 40.0-44.9, adult; L97.929 Non-pressure chronic ulcer of unspecified part of left lower leg with unspecified severity; G47.33 Obstructive sleep apnea (adult) (pediatric); Z91.040 Latex allergy status; E11.51 Type 2 diabetes mellitus with diabetic peripheral angiopathy without gangrene; I25.10 Atherosclerotic heart disease of native coronary artery without angina pectoris; E66.01 Morbid (severe) obesity due to excess calories; Z88.8 Allergy status to other drugs, medicaments and biological substances; Z88.1 Allergy status to other antibiotic agents; Z95.1 Presence of aortocoronary bypass graft; E78.5 Hyperlipidemia, unspecified; Z85.51 Personal history of malignant neoplasm of bladder; M79.7 Fibromyalgia; Z90.710 Acquired absence of both cervix and uterus; I25.5 Ischemic cardiomyopathy; I35.8 Other nonrheumatic aortic valve disorders; E87.5 Hyperkalemia; Z79.82 Long term (current) use of aspirin; I11.0 Hypertensive heart disease with heart failure; I25.2 Old myocardial infarction; I49.9 Cardiac arrhythmia, unspecified; K21.9 Gastro-esophageal reflux disease without esophagitis; Z79.02 Long term (current) use of antithrombotics/antiplatelets; Z79.4 Long term (current) use of insulin; Z91.041 Radiographic dye allergy status; M19.90 Unspecified osteoarthritis, unspecified site; Z79.899 Other long term (current) drug therapy
CPT/HCPCS: 36415; 71045; 73030; 73630; 75635; 80048; 80053; 80202; 81001; 82948; 83690; 83880; 84132; 84484; 85025; 85027; 85610; 85730; 87040; 93005; 93925; 93971; 94640; 94664; 97039; G0378; J1200; J1650; J1815; J1940; J2543; J3370; J3490; J7050; Q9967

== ENCOUNTER 2020-07-19 15:07 | Emergency (ER) | payer OTHER ==
[~2020-07-19 15:07] MED LIST changes: +ACET-2521 PO; -ACET-3194 PO; -ALBU1.252 IH; -AMOX1TAB16 PO; +ATOR10 PO; -ATOR10TA69 PO; -CARV6.25 PO; +CHOL-34 PO; -CHOL100040 PO; -CLOP75TA32 PO; -FENO160T16 PO; -FERR-82 PO; +FLUT16H NASAL; -FOLI0.8T22 PO; +FOLI1TAB85 PO; +FURO40TA5 PO; -GLUC1CAP14 PO; -INSU100I35 SQ; +INSU10VI3 SQ; +IPRNEB IH; +METO-408 PO; -PRED20B PO; -TRAM50TA2 PO; +TRAM50TA4 PO; +[UNRECOGNIZED DRUG - CODE] PO
[2020-07-19 15:43] LABS: APPEARANCE,URINE Clear (CLEAR); BILIRUBIN,URINE Negative (NEGATIVE); COLOR,URINE Yellow (YELLOW); GLUCOSE, URINE (UA) Negative (NEGATIVE); KETONES,URINE Negative (NEGATIVE); LEUKOCYTE ESTERASE ,URINE Negative (NEGATIVE); NITRATE,URINE Negative (NEGATIVE); OCCULT BLOOD,URINE Negative (NEGATIVE); PROTEIN,URINE Negative (NEGATIVE)
[2020-07-19 16:16] LABS: BASOPHILS % (AUTO) 0.6 % (0.0-5.0); EOSINOPHILS % (AUTO) 2.2 % (0.0-8.0); HEMATOCRIT 35.3 % (36-48); LYMPHOCYTES % (AUTO) 16.2 % (21.0-51.0); MEAN CORPUSCULAR HEMOGLOBIN 30.3 pg (27.0-33.0); MEAN CORPUSCULAR HGB CONC 32.6 g/dL (32.0-36.0); MEAN CORPUSCULAR VOLUME 92.9 fL (79-99); MONOCYTES % (AUTO) 9.8 % (3.0-13.0); NEUTROPHILS % (AUTO) 69.9 % (40.0-77.0); PLATELET COUNT (AUTO) 228 K/uL (130-400); RED CELL DISTRIBUTION WIDTH 13.6 % (11.0-15.5); WHITE BLOOD COUNT (AUTO) 12.9 K/uL (4.8-10.8)
[2020-07-19 16:25] LABS: CREATININE 1.4 mg/dL (0.5-1.5); POTASSIUM 4.3 mmol/L (3.5-5.1)
[2020-07-19 16:34] LABS: ALBUMIN 3.2 g/dL (3.5-5.0); BILIRUBIN,TOTAL 0.5 mg/dL (0.2-1.0); TOTAL PROTEIN, SERUM 7.2 g/dL (6.0-8.3)
== END 2020-07-19 17:09 | disposition home or self-care (01) ==
LOC: EDH 15:07
DX: B34.9 Viral infection, unspecified (principal); R53.1 Weakness; R42 Dizziness and giddiness; I10 Essential (primary) hypertension; E78.5 Hyperlipidemia, unspecified; I25.10 Atherosclerotic heart disease of native coronary artery without angina pectoris; M79.7 Fibromyalgia; Z88.1 Allergy status to other antibiotic agents; Z91.040 Latex allergy status; Z91.041 Radiographic dye allergy status; Z95.1 Presence of aortocoronary bypass graft; Z98.890 Other specified postprocedural states
CPT/HCPCS: 36415; 71045; 80053; 81003; 84484; 85025; 93005

== ENCOUNTER 2020-07-26 12:05 | Observation (INO) | payer OTHER ==
[2020-07-26] VITALS (9 sets, daily range): BP systolic 115–156; BP diastolic 38–61
[~2020-07-26] VITALS: Ht 152.4 cm; Wt 95.1 kg
[2020-07-26 13:48] LABS: APPEARANCE,URINE Clear (CLEAR); BILIRUBIN,URINE Negative (NEGATIVE); COLOR,URINE Yellow (YELLOW); GLUCOSE, URINE (UA) Negative (NEGATIVE); KETONES,URINE Negative (NEGATIVE); LEUKOCYTE ESTERASE ,URINE Negative (NEGATIVE); NITRATE,URINE Negative (NEGATIVE); OCCULT BLOOD,URINE Negative (NEGATIVE); PH,URINE 5.5 (5.0-8.0); PROTEIN,URINE Negative (NEGATIVE); UROBILINOGEN,URINE 0.2 mg/dL (0.2-1.0)
[2020-07-26 15:04] LABS: BASOPHILS % (AUTO) 0.5 % (0.0-5.0); HEMATOCRIT 34.1 % (36-48); LYMPHOCYTES % (AUTO) 12.1 % (21.0-51.0); MEAN CORPUSCULAR HEMOGLOBIN 30.2 pg (27.0-33.0); MEAN CORPUSCULAR HGB CONC 32.6 g/dL (32.0-36.0); MEAN CORPUSCULAR VOLUME 92.7 fL (79-99); MONOCYTES % (AUTO) 6.1 % (3.0-13.0); NEUTROPHILS % (AUTO) 79.7 % (40.0-77.0); PLATELET COUNT (AUTO) 223 K/uL (130-400); RED BLOOD CELL COUNT(AUTO) 3.68 MIL/uL (4.00-5.50); RED CELL DISTRIBUTION WIDTH 13.4 % (11.0-15.5); WHITE BLOOD COUNT (AUTO) 12.4 K/uL (4.8-10.8)
[2020-07-26 15:17] LABS: INR 1.05 (0.85-1.15); PROTHROMBIN TIME 11.4 SEC (9.6-11.6)
[2020-07-26 15:23] LABS: B-TYPE NATRIURETIC PEPTIDE 196 pg/mL (0-100)
[2020-07-26 15:27] LABS: CARBON DIOXIDE 30 mmol/L (21-32); CHLORIDE 99 mmol/L (101-111); CREATININE 1.3 mg/dL (0.5-1.5); GLOMERULAR FILTR. RATE CALC 43 mL/min (>60); GLUCOSE,RANDOM 223 mg/dL (70-105); POTASSIUM 5.4 mmol/L (3.5-5.1); SODIUM SERUM 134 mmol/L (136-145); UREA NITROGEN, BLOOD 22 mg/dL (7-18)
[2020-07-26 15:39] LABS: ALANINE AMINOTRANSFERASE 28 U/L (12-78); ALBUMIN 3.4 g/dL (3.5-5.0); ASPARTATE AMINOTRANSFERASE 23 U/L (10-37); BILIRUBIN,TOTAL 0.5 mg/dL (0.2-1.0); CREATINE KINASE, TOTAL 118 U/L (21-232); LIPASE 197 U/L (114-286); MYOGLOBIN 102 ng/mL (10-92); TOTAL PROTEIN, SERUM 7.4 g/dL (6.0-8.3); TROPONIN I < 0.04 ng/mL (0.00-0.06)
[2020-07-26] MEDS ORDERED: ACETAMINOPHEN 325 MG TAB PO PRN ×2 (18:15)
[2020-07-26] MEDS ORDERED: GUAIFENESIN-DM 200/20 MG 10 ML PO PRN (18:15)
[2020-07-26] MEDS ORDERED: LACTULOSE 20 GM/30 ML UDCUP PO PRN (18:15)
[2020-07-26] MEDS ORDERED: ZOLPIDEM TARTRATE 5 MG TAB PO PRN (18:15)
[2020-07-26] MEDS ORDERED: ONDANSETRON HCL 4 MG/2 ML VIAL IV PRN (18:15)
[2020-07-26] MEDS ORDERED: MAG HYDROX/AL HYDROX/SIMETH ES 30 ML SUSP UDCUP PO PRN (18:15)
[2020-07-26] MEDS ORDERED: NITROGLYCERIN 0.4 MG SL TAB SL PRN (18:15)
[2020-07-26] MEDS ORDERED: GLUCAGON 1MG KIT 1 MG ML IM PRN (18:30)
[2020-07-26] MEDS ORDERED: DEXTROSE 50%-WATER 50 ML DISP.SYRIN IV PRN (18:30)
[2020-07-26] MEDS ORDERED: LABETALOL 20 MG/4 ML DISP.SYRIN IV SCH (18:45)
[2020-07-26] MEDS ORDERED: MORPHINE 2 MG SYG (2MG/1ML) IV PRN (18:45)
[2020-07-26] MEDS: INSULIN HUMULIN R 100 UNIT/ML 3ML SQ SCH (21:00)
[2020-07-26] MEDS ORDERED: LEVOFLOXACIN 500 MG/D5W 100 ML 100 ML IV SCH (21:45)
[2020-07-26] MEDS ORDERED: MAGNESIUM 2GM PREMIX 50ML 50 ML IV PRN (23:00)
[2020-07-26] MEDS: SODIUM CHLORIDE 0.9% 1000ML 1,000 ML IV SCH (23:26)
[2020-07-27] VITALS (10 sets, daily range): BP systolic 115–146; BP diastolic 32–64
[2020-07-27] MEDS ORDERED: SODIUM POLYSTYRENE SULFONATE 15 GM/60 ML ML PO SCH (04:12)
[2020-07-27 06:51] LABS: HEMATOCRIT 34.5 % (36-48); MEAN CORPUSCULAR HEMOGLOBIN 30.9 pg (27.0-33.0); MEAN CORPUSCULAR HGB CONC 32.5 g/dL (32.0-36.0); RED BLOOD CELL COUNT(AUTO) 3.63 MIL/uL (4.00-5.50); RED CELL DISTRIBUTION WIDTH 13.5 % (11.0-15.5); WHITE BLOOD COUNT (AUTO) 10.7 K/uL (4.8-10.8)
[2020-07-27 06:59] LABS: CREATININE 1.2 mg/dL (0.5-1.5); MAGNESIUM 1.6 mg/dL (1.80-2.40); POTASSIUM 5.2 mmol/L (3.5-5.1)
[2020-07-27 07:03] LABS: HEMOGLOBIN A1C 8.3 % (4.0-6.0)
[2020-07-27] MEDS: INSULIN HUMULIN R 100 UNIT/ML 3ML SQ SCH ×3 (08:09→16:30)
[2020-07-27] MEDS ORDERED: FAMOTIDINE/PF 20 MG/2 ML VIAL IV SCH (09:00)
[2020-07-27] MEDS: FLUTICASONE PROPIONATE 50MCG/SPRAY 16 GM BOTTLE NS SCH (09:00)
[2020-07-27] MEDS ORDERED: ENOXAPARIN SODIUM 40 MG/0.4 ML SYRINGE SQ SCH (09:00)
[2020-07-27] MEDS ORDERED: FUROSEMIDE 40 MG TABLET PO SCH (09:00)
[2020-07-27] MEDS: METOPROLOL SUCCINATE 50 MG TAB.SR.24H PO SCH (11:08)
[2020-07-27] MEDS: ATORVASTATIN CALCIUM 10 MG TABLET PO SCH (11:08)
[2020-07-27] MEDS: INSULIN HUMULIN 70/30 100 UNIT/ML 3ML SQ SCH (11:13)
[2020-07-27] MEDS ORDERED: VANCOMYCIN PROTOCOL PER PHARMACY IV SCH (11:15)
[2020-07-27] MEDS ORDERED: COMPOUND IV REFRIGERATED 1 EACH IVSOLN MISC PRN (11:15)
[2020-07-27] MEDS ORDERED: VANCOMYCIN KIT 250 ML IV SCH ×2 (11:15)
[2020-07-27] MEDS: ZOSYN 3.375GM+NS 50ML 50 ML IV SCH ×2 (11:15→21:39)
[2020-07-27] MEDS: SODIUM CHLORIDE 0.9% 1000ML 1,000 ML IV SCH (12:20)
[2020-07-27] MEDS ORDERED: IPRATROPIUM/ALBUTEROL SULFATE 3 ML SOLUTION IH PRN (12:45)
[2020-07-27] MEDS ORDERED: IPRATROPIUM/ALBUTEROL SULFATE 3 ML SOLUTION IH ONE (12:54)
[2020-07-27] MEDS ORDERED: FUROSEMIDE 40MG VIAL (10MG/ML) IV SCH (13:55)
[2020-07-27] MEDS ORDERED: IPRATROPIUM 0.5 MG/2.5 ML INH IH SCH (21:00)
[2020-07-27] MEDS ORDERED: INSULIN HUMULIN 70/30 100 UNIT/ML 3ML SQ SCH (21:00)
[2020-07-27] MEDS ORDERED: TRAMADOL HCL 50 MG TABLET PO SCH (21:00)
[2020-07-28] MEDS: SODIUM CHLORIDE 0.9% 1000ML 1,000 ML IV SCH (01:40)
[2020-07-28 03:57] VITALS: BP 153/71
[2020-07-28 06:28] LABS: HEMATOCRIT 30.6 % (36-48); MEAN CORPUSCULAR HEMOGLOBIN 30.7 pg (27.0-33.0); MEAN CORPUSCULAR HGB CONC 32.4 g/dL (32.0-36.0); RED BLOOD CELL COUNT(AUTO) 3.22 MIL/uL (4.00-5.50); RED CELL DISTRIBUTION WIDTH 13.7 % (11.0-15.5); WHITE BLOOD COUNT (AUTO) 9.4 K/uL (4.8-10.8)
[2020-07-28 06:39] LABS: CREATININE 1.2 mg/dL (0.5-1.5); POTASSIUM 4.1 mmol/L (3.5-5.1)
[2020-07-28 08:09] VITALS: BP 150/64
[2020-07-28] MEDS ORDERED: VANCOMYCIN 750MG + NS 250 ML IV SCH ×2 (09:00)
[2020-07-28] MEDS: FLUTICASONE PROPIONATE 50MCG/SPRAY 16 GM BOTTLE NS SCH (09:00)
[2020-07-28] MEDS: METOPROLOL SUCCINATE 50 MG TAB.SR.24H PO SCH (11:31)
[2020-07-28] MEDS: ATORVASTATIN CALCIUM 10 MG TABLET PO SCH (11:31)
[2020-07-28 11:37] VITALS: BP 129/57
[2020-07-28] MEDS: INSULIN HUMULIN 70/30 100 UNIT/ML 3ML SQ SCH (11:50)
[2020-07-28] MEDS: ZOSYN 3.375GM+NS 50ML 50 ML IV SCH (12:59)
== END 2020-07-28 17:35 ==
LOC: EDH 12:05 → EDHIP 17:56 → 3BH 07-27 07:41
PROVIDERS: ADMIT Internal Medicine Critical Care Medicine; ATTEND Internal Medicine Critical Care Medicine
DX: L03.116 Cellulitis of left lower limb (principal); Z20.822 Contact with and (suspected) exposure to COVID-19; I25.10 Atherosclerotic heart disease of native coronary artery without angina pectoris; I13.0 Hypertensive heart and chronic kidney disease with heart failure and stage 1 through stage 4 chronic kidney disease, or unspecified chronic kidney disease; E11.22 Type 2 diabetes mellitus with diabetic chronic kidney disease; I50.31 Acute diastolic (congestive) heart failure; N18.32 Chronic kidney disease, stage 3b; I35.0 Nonrheumatic aortic (valve) stenosis; E11.51 Type 2 diabetes mellitus with diabetic peripheral angiopathy without gangrene; E78.5 Hyperlipidemia, unspecified; I82.811 Embolism and thrombosis of superficial veins of right lower extremity; I87.2 Venous insufficiency (chronic) (peripheral); G47.33 Obstructive sleep apnea (adult) (pediatric); I25.5 Ischemic cardiomyopathy; J45.909 Unspecified asthma, uncomplicated; E66.01 Morbid (severe) obesity due to excess calories; M81.0 Age-related osteoporosis without current pathological fracture; M79.7 Fibromyalgia; M19.90 Unspecified osteoarthritis, unspecified site; Z85.51 Personal history of malignant neoplasm of bladder; Z95.1 Presence of aortocoronary bypass graft; Z90.710 Acquired absence of both cervix and uterus; Z79.4 Long term (current) use of insulin; Z79.899 Other long term (current) drug therapy; Z88.0 Allergy status to penicillin; Z88.1 Allergy status to other antibiotic agents; Z91.041 Radiographic dye allergy status; Z91.040 Latex allergy status; Z68.41 Body mass index [BMI] 40.0-44.9, adult
CPT/HCPCS: 36415 ×3; 71045 ×2; 73620; 80048 ×2; 80053; 81003; 82550; 82948 ×8; 83036; 83605; 83690; 83735 ×2; 83874; 83880; 84100; 84145; 84484 ×2; 85025; 85027 ×2; 85378 ×2; 85610; 87040 ×2; 87077; 87088; 87186; 87426; 87635; 87804 ×2; 87880; 93005; 94640 ×2; 94664; 96361 ×2; 96365; 96366 ×3; 96367 ×2; 96372 ×2; 96375; 97039 ×2; 97116 ×2; 97161; 99285; C1894; C9803; G0378 ×46; G8978; G8979; G8980; G8981; G8982; G8983; J1650; J1815 ×4; J1956; J2543 ×2; J3370; J3475; J3490; J7050

== ENCOUNTER 2020-08-26 09:29 | Emergency (ER) | payer OTHER ==
[~2020-08-26] VITALS: Ht 165.1 cm; Wt 97.1 kg
[2020-08-26 09:52] LABS: BASOPHILS % (AUTO) 0.4 % (0.0-5.0); EOSINOPHILS % (AUTO) 1.4 % (0.0-8.0); HEMATOCRIT 34.5 % (36-48); LYMPHOCYTES % (AUTO) 13.5 % (21.0-51.0); MEAN CORPUSCULAR HEMOGLOBIN 30.1 pg (27.0-33.0); MEAN CORPUSCULAR HGB CONC 32.8 g/dL (32.0-36.0); MONOCYTES % (AUTO) 8.1 % (3.0-13.0); NEUTROPHILS % (AUTO) 76.2 % (40.0-77.0); PLATELET COUNT (AUTO) 227 K/uL (130-400); RED BLOOD CELL COUNT(AUTO) 3.75 MIL/uL (4.00-5.50); RED CELL DISTRIBUTION WIDTH 12.8 % (11.0-15.5); WHITE BLOOD COUNT (AUTO) 11.4 K/uL (4.8-10.8)
[2020-08-26 09:56] VITALS: BP 139/44
[2020-08-26 09:59] LABS: CARBON DIOXIDE 29 mmol/L (21-32); CHLORIDE 95 mmol/L (101-111); GLOMERULAR FILTR. RATE CALC 58 mL/min (>60); GLUCOSE,RANDOM 162 mg/dL (70-105); POTASSIUM 4.2 mmol/L (3.5-5.1); SODIUM SERUM 131 mmol/L (136-145); UREA NITROGEN, BLOOD 28 mg/dL (7-18)
[2020-08-26 10:05] LABS: INR 1.05 (0.85-1.15); PROTHROMBIN TIME 11.4 SEC (9.6-11.6)
[2020-08-26 10:07] LABS: PARTIAL THROMBOPLASTIN TIME 23.8 SEC (26.3-35.5)
[2020-08-26 10:12] LABS: ALANINE AMINOTRANSFERASE 22 U/L (12-78); ALBUMIN 3.2 g/dL (3.5-5.0); ASPARTATE AMINOTRANSFERASE 16 U/L (10-37); B-TYPE NATRIURETIC PEPTIDE 105 pg/mL (0-100); BILIRUBIN,TOTAL 0.6 mg/dL (0.2-1.0); CREATINE KINASE, TOTAL 120 U/L (21-232); MYOGLOBIN 184 ng/mL (10-92); TOTAL PROTEIN, SERUM 7.2 g/dL (6.0-8.3); TROPONIN I < 0.04 ng/mL (0.00-0.06)
[2020-08-26 11:00] VITALS: BP 159/53
[2020-08-26 12:00] VITALS: BP 167/64
[2020-08-26] MEDS ORDERED: SOLU-MEDROL 125MG VIAL IVP SCH (14:11)
[2020-08-26] MEDS ORDERED: AZITHROMYCIN 250 MG TABLET PO SCH (14:12)
[2020-08-26 14:45] VITALS: BP 180/59
[2020-08-26] MEDS ORDERED: HYDRALAZINE 20MG/ML VIAL IV SCH (15:00)
[2020-08-26] MEDS ORDERED: METH4TAB3 PO (15:02)
[2020-08-26] MEDS ORDERED: AZIT500T PO (15:02)
[2020-08-26] MEDS ORDERED: METOPROLOL TARTRATE 25 MG TAB PO ONE (15:10)
[2020-08-26] MEDS ORDERED: CLOPIDOGREL 75MG TAB PO SCH (15:10)
[2020-08-26 15:15] VITALS: BP 152/66
[2020-08-26] MEDS ORDERED: METOPROLOL TARTRATE 25 MG TAB ONE (15:20)
[2020-08-26] MEDS ORDERED: CLOPIDOGREL 75MG TAB ONE (15:20)
== END 2020-08-26 15:43 | disposition home or self-care (01) ==
LOC: EDH 09:29
DX: J20.9 Acute bronchitis, unspecified (principal); I11.0 Hypertensive heart disease with heart failure; I50.9 Heart failure, unspecified; E11.9 Type 2 diabetes mellitus without complications; G47.30 Sleep apnea, unspecified; E78.00 Pure hypercholesterolemia, unspecified; I25.10 Atherosclerotic heart disease of native coronary artery without angina pectoris; Z79.4 Long term (current) use of insulin; M79.7 Fibromyalgia; Z88.1 Allergy status to other antibiotic agents; Z88.0 Allergy status to penicillin; Z95.1 Presence of aortocoronary bypass graft; Z88.8 Allergy status to other drugs, medicaments and biological substances; Z90.710 Acquired absence of both cervix and uterus; Z91.041 Radiographic dye allergy status; Z91.040 Latex allergy status; Z79.52 Long term (current) use of systemic steroids; Z85.51 Personal history of malignant neoplasm of bladder; Z79.899 Other long term (current) drug therapy
CPT/HCPCS: 36415; 71045; 80053; 82550; 82948 ×2; 83874; 83880; 84484 ×2; 85025; 85610; 85730; 93005; 96374; 99285; J2930

== ENCOUNTER 2020-09-11 20:37 | Emergency (ER) | payer OTHER ==
[~2020-09-11] VITALS: Ht 157.5 cm; Wt 97.1 kg
[~2020-09-11 20:37] MED LIST changes: +AZIT500T PO; +METH4TAB3 PO
[2020-09-11 20:43] VITALS: BP 152/67
[2020-09-11 22:17] LABS: BASOPHILS % (AUTO) 0.6 % (0.0-5.0); HEMATOCRIT 39.1 % (36-48); LYMPHOCYTES % (AUTO) 19.4 % (21.0-51.0); MEAN CORPUSCULAR HEMOGLOBIN 30.6 pg (27.0-33.0); MEAN CORPUSCULAR HGB CONC 33.5 g/dL (32.0-36.0); MEAN CORPUSCULAR VOLUME 91.4 fL (79-99); MONOCYTES % (AUTO) 7.5 % (3.0-13.0); NEUTROPHILS % (AUTO) 70.2 % (40.0-77.0); PLATELET COUNT (AUTO) 221 K/uL (130-400); RED BLOOD CELL COUNT(AUTO) 4.28 MIL/uL (4.00-5.50); RED CELL DISTRIBUTION WIDTH 12.9 % (11.0-15.5)
[2020-09-11 22:28] LABS: POTASSIUM 3.9 mmol/L (3.5-5.1)
[2020-09-11 22:33] LABS: ALBUMIN 3.4 g/dL (3.5-5.0); BILIRUBIN,TOTAL 0.5 mg/dL (0.2-1.0); TOTAL PROTEIN, SERUM 7.5 g/dL (6.0-8.3)
[2020-09-11 22:34] LABS: B-TYPE NATRIURETIC PEPTIDE 168 pg/mL (0-100)
[2020-09-11 22:43] VITALS: BP 117/42
[2020-09-11] MEDS ORDERED: FAMO-136 PO (22:45)
[2020-09-11] MEDS ORDERED: D-ME1POW16 PO (22:45)
[2020-09-11] MEDS ORDERED: MAG/ALUM/SIMETH 30 ML UDCUP PO ONE (23:00)
[2020-09-11] MEDS ORDERED: LIDOCAINE HCL 2% VISCOUS 15 ML UDCUP PO ONE (23:00)
== END 2020-09-11 23:32 | disposition home or self-care (01) ==
LOC: EDH 20:37
DX: J06.9 Acute upper respiratory infection, unspecified (principal); K21.9 Gastro-esophageal reflux disease without esophagitis; E78.00 Pure hypercholesterolemia, unspecified; I13.0 Hypertensive heart and chronic kidney disease with heart failure and stage 1 through stage 4 chronic kidney disease, or unspecified chronic kidney disease; E11.22 Type 2 diabetes mellitus with diabetic chronic kidney disease; N18.9 Chronic kidney disease, unspecified; I50.9 Heart failure, unspecified; I25.10 Atherosclerotic heart disease of native coronary artery without angina pectoris; E66.01 Morbid (severe) obesity due to excess calories; Z68.39 Body mass index [BMI] 39.0-39.9, adult; Z20.822 Contact with and (suspected) exposure to COVID-19; Z90.710 Acquired absence of both cervix and uterus; Z95.0 Presence of cardiac pacemaker; Z98.890 Other specified postprocedural states; Z79.4 Long term (current) use of insulin; Z79.899 Other long term (current) drug therapy; Z88.1 Allergy status to other antibiotic agents; Z91.041 Radiographic dye allergy status; Z91.040 Latex allergy status; Z88.8 Allergy status to other drugs, medicaments and biological substances
CPT/HCPCS: 36415; 71045; 80053; 83605; 83880; 84484; 85025; 85378; 87040 ×2; 87635; 87804 ×2; 87880; 93005; 99285; C9803

== ENCOUNTER 2020-10-08 17:40 | Inpatient (IN) | payer OTHER ==
[~2020-10-08] VITALS: Ht 152.4 cm; Wt 92.4 kg
[~2020-10-08 17:40] MED LIST changes: +D-ME1POW16 PO; +FAMO-136 PO
[2020-10-08 18:28] LABS: HEMATOCRIT 33.9 % (36-48); MEAN CORPUSCULAR HEMOGLOBIN 30.3 pg (27.0-33.0); MEAN CORPUSCULAR HGB CONC 33.3 g/dL (32.0-36.0); MEAN CORPUSCULAR VOLUME 90.9 fL (79-99); PLATELET COUNT (AUTO) 240 K/uL (130-400); RED BLOOD CELL COUNT(AUTO) 3.73 MIL/uL (4.00-5.50); RED CELL DISTRIBUTION WIDTH 13.2 % (11.0-15.5)
[2020-10-08 18:57] LABS: CREATININE 1.3 mg/dL (0.5-1.5); POTASSIUM 4.1 mmol/L (3.5-5.1)
[2020-10-08 19:02] LABS: ALBUMIN 3.1 g/dL (3.5-5.0); BILIRUBIN,TOTAL 0.2 mg/dL (0.2-1.0); CRP QUANTITATIVE 11.1 mg/L (0.00-9.0); TOTAL PROTEIN, SERUM 7.1 g/dL (6.0-8.3)
[2020-10-08 19:24] LABS: BAND NEUTROPHILS % (MANUAL) 1 % (0-2); LYMPHOCYTES % (MANUAL) 14 % (22-44); MAN.DIFF COMMENT-IMPRESSION MANUAL DIFFERENTIAL; MONOCYTES % (MANUAL) 7 % (2-9); PLATELET MORPHOLOGY COMMENT ADEQUATE; REACTIVE LYMPHOCYTES 1 % (0-0); SEGMENTED NEUTROPHILS % 77 % (40-70)
[2020-10-08] MEDS ORDERED: CLINDAMYCIN IVPB 600MG/50ML 50 ML IV STA (19:50)
[2020-10-08 19:52] VITALS: BP 183/65
[2020-10-08] MEDS ORDERED: DOXYCYCLINE 100MG+NS 250ML IV ONE (21:00)
[2020-10-08] MEDS ORDERED: 0.9% NACL 250ML IV ONE (21:00)
[2020-10-08] MEDS ORDERED: DOXYCYCLINE 100MG IVPB (VIAL) IVPB ONE (21:00)
[2020-10-08 22:18] VITALS: BP 164/75
[2020-10-08] MEDS ORDERED: SULFAMETHOX-TMP DS 800/160 TAB PO SCH (22:30)
[2020-10-09] VITALS (7 sets, daily range): BP systolic 120–140; BP diastolic 46–72
[2020-10-09] MEDS ORDERED: MAG/ALUM/SIMETH 30 ML UDCUP PO PRN
[2020-10-09] MEDS ORDERED: DEXTROSE 50%-WATER 50 ML DISP.SYRIN IV PRN
[2020-10-09] MEDS ORDERED: LACTULOSE 20 GM/30 ML UDCUP PO PRN
[2020-10-09] MEDS ORDERED: GLUCAGON 1MG KIT 1 MG ML IM PRN
[2020-10-09] MEDS ORDERED: GUAIFENESIN-DM 200/20 MG 10 ML PO PRN
[2020-10-09] MEDS ORDERED: ONDANSETRON 4MG INJ IV PRN
[2020-10-09] MEDS ORDERED: ZOLPIDEM TARTRATE 5 MG TAB PO PRN
[2020-10-09] MEDS ORDERED: ACETAMINOPHEN 325 MG TAB PO PRN ×2
[2020-10-09] MEDS ORDERED: LABETALOL 20MG SYG IV PRN
[2020-10-09] MEDS ORDERED: NITROGLYCERIN 0.4 MG SL TAB SL PRN
[2020-10-09] MEDS ORDERED: SULFAMETHOX-TMP DS 800/160 TAB ONE (02:29)
[2020-10-09] MEDS ORDERED: FOLI0.8T22 PO (02:34)
[2020-10-09] MEDS ORDERED: DOCU100T PO (02:34)
[2020-10-09] MEDS ORDERED: CLOP75TA32 PO (02:34)
[2020-10-09] MEDS ORDERED: MIRT-93 PO (02:34)
[2020-10-09] MEDS ORDERED: NYST15PO3 TP (02:34)
[2020-10-09] MEDS ORDERED: HYDROMORPHONE 0.5 MG SYG (0.5MG/0.5ML) IVP PRN (04:30)
[2020-10-09 04:58] LABS: BASOPHILS % (AUTO) 0.7 % (0.0-5.0); EOSINOPHILS % (AUTO) 2.4 % (0.0-8.0); HEMATOCRIT 32.6 % (36-48); LYMPHOCYTES % (AUTO) 24.6 % (21.0-51.0); MEAN CORPUSCULAR HEMOGLOBIN 29.9 pg (27.0-33.0); MEAN CORPUSCULAR HGB CONC 33.1 g/dL (32.0-36.0); MEAN CORPUSCULAR VOLUME 90.3 fL (79-99); MONOCYTES % (AUTO) 9.3 % (3.0-13.0); NEUTROPHILS % (AUTO) 62.2 % (40.0-77.0); PLATELET COUNT (AUTO) 224 K/uL (130-400); RED BLOOD CELL COUNT(AUTO) 3.61 MIL/uL (4.00-5.50); RED CELL DISTRIBUTION WIDTH 13.2 % (11.0-15.5); WHITE BLOOD COUNT (AUTO) 10.6 K/uL (4.8-10.8)
[2020-10-09 05:19] LABS: ALBUMIN 2.6 g/dL (3.5-5.0); BILIRUBIN,TOTAL 0.3 mg/dL (0.2-1.0); CREATININE 1.1 mg/dL (0.5-1.5); POTASSIUM 3.9 mmol/L (3.5-5.1); TOTAL PROTEIN, SERUM 6.2 g/dL (6.0-8.3)
[2020-10-09] MEDS ORDERED: [UNRECOGNIZED DRUG - REMARK] MISC SCH (06:00)
[2020-10-09] MEDS: INSULIN HUMULIN R 100 UNIT/ML 3ML SQ SCH ×4 (07:30→20:58)
[2020-10-09] MEDS ORDERED: Vitamin B Complex/Vit C/Folic Acid PO SCH (09:00)
[2020-10-09] MEDS ORDERED: FAMOTIDINE 20MG VIAL IV SCH ×2 (09:00)
[2020-10-09] MEDS: INSULN ASP PRT SQ SCH (09:00)
[2020-10-09] MEDS: [UNRECOGNIZED DRUG - OTHER] SQ SCH (09:00)
[2020-10-09] MEDS: INSULIN ASPART SQ SCH (09:00)
[2020-10-09] MEDS: NYSTATIN 15 GM POWDER TP SCH ×2 (09:00→14:00)
[2020-10-09] MEDS ORDERED: SULFAMETHOX-TMP DS 800/160 TAB PO SCH (09:00)
[2020-10-09] MEDS ORDERED: DOXYCYCLINE 100MG+NS 250ML IV SCH (10:00)
[2020-10-09] MEDS: DOCUSATE SODIUM 100 MG CAP PO SCH (10:58)
[2020-10-09] MEDS: FUROSEMIDE 40 MG TABLET PO SCH (10:59)
[2020-10-09] MEDS: CLOPIDOGREL 75MG TAB PO SCH (10:59)
[2020-10-09] MEDS: METOPROLOL SUCCINATE 50 MG TAB.SR.24H PO SCH (10:59)
[2020-10-09] MEDS: ATORVASTATIN 20 MG TABLET PO SCH (10:59)
[2020-10-09] MEDS: ENOXAPARIN SODIUM 30 MG/0.3 ML SQ SCH (11:00)
[2020-10-09] MEDS: 0.9% NACL 250ML IVPB SCH ×5 (11:01→11:07)
[2020-10-09] MEDS ORDERED: VANCOMYCIN PROTOCOL PER PHARMACY IV SCH (15:30)
[2020-10-09] MEDS ORDERED: COMPOUND IV REFRIGERATED 1 EACH IVSOLN MISC PRN (17:00)
[2020-10-09] MEDS: VANCOMYCIN 1.25GM/NS 250ML IVPB SCH ×2 (17:47)
[2020-10-09] MEDS: FAMOTIDINE 20MG TAB PO SCH (20:57)
[2020-10-09] MEDS: MIRTAZAPINE 15 MG TABLET PO SCH (20:57)
[2020-10-09] MEDS: TRAMADOL HCL 50 MG TABLET PO SCH (20:58)
[2020-10-10 00:03] VITALS: BP 117/57
[2020-10-10 04:00] VITALS: BP 113/47
[2020-10-10 05:01] LABS: HEMATOCRIT 30.7 % (36-48); MEAN CORPUSCULAR HEMOGLOBIN 29.6 pg (27.0-33.0); MEAN CORPUSCULAR HGB CONC 32.2 g/dL (32.0-36.0); MEAN CORPUSCULAR VOLUME 91.9 fL (79-99); RED BLOOD CELL COUNT(AUTO) 3.34 MIL/uL (4.00-5.50); RED CELL DISTRIBUTION WIDTH 13.3 % (11.0-15.5); WHITE BLOOD COUNT (AUTO) 8.5 K/uL (4.8-10.8)
[2020-10-10 05:10] LABS: HEMOGLOBIN A1C 8.5 % (4.0-6.0)
[2020-10-10 05:24] LABS: CREATININE 1.1 mg/dL (0.5-1.5); POTASSIUM 4.6 mmol/L (3.5-5.1)
[2020-10-10] MEDS: INSULIN HUMULIN R 100 UNIT/ML 3ML SQ SCH ×4 (06:12→21:00)
[2020-10-10 07:50] VITALS: BP 111/38
[2020-10-10] MEDS: [UNRECOGNIZED DRUG - OTHER] SQ SCH (09:00)
[2020-10-10] MEDS: INSULIN ASPART SQ SCH (09:00)
[2020-10-10] MEDS: NYSTATIN 15 GM POWDER TP SCH ×3 (09:00→22:06)
[2020-10-10] MEDS: INSULN ASP PRT SQ SCH (09:00)
[2020-10-10] MEDS: FUROSEMIDE 40 MG TABLET PO SCH (10:07)
[2020-10-10] MEDS: CLOPIDOGREL 75MG TAB PO SCH (10:07)
[2020-10-10] MEDS: DOCUSATE SODIUM 100 MG CAP PO SCH (10:07)
[2020-10-10] MEDS: ATORVASTATIN 20 MG TABLET PO SCH (10:08)
[2020-10-10] MEDS: FAMOTIDINE 20MG TAB PO SCH (10:08)
[2020-10-10] MEDS: METOPROLOL SUCCINATE 50 MG TAB.SR.24H PO SCH (10:08)
[2020-10-10] MEDS: ENOXAPARIN SODIUM 30 MG/0.3 ML SQ SCH (10:27)
[2020-10-10 11:52] VITALS: BP 131/52
[2020-10-10] MEDS: 0.9% NACL 250ML IVPB SCH (12:00)
[2020-10-10 15:50] VITALS: BP 139/57
[2020-10-10] MEDS: VANCOMYCIN 1.25GM/NS 250ML IVPB SCH ×2 (17:00)
[2020-10-10 20:00] VITALS: BP 103/21
[2020-10-10] MEDS: TRAMADOL HCL 50 MG TABLET PO SCH (22:07)
[2020-10-10] MEDS: MIRTAZAPINE 15 MG TABLET PO SCH (22:07)
[2020-10-11 00:13] VITALS: BP 120/54
[2020-10-11 04:00] VITALS: BP 124/58
[2020-10-11 05:36] LABS: HEMATOCRIT 31.1 % (36-48); MEAN CORPUSCULAR HEMOGLOBIN 30.1 pg (27.0-33.0); MEAN CORPUSCULAR HGB CONC 32.5 g/dL (32.0-36.0); MEAN CORPUSCULAR VOLUME 92.8 fL (79-99); RED BLOOD CELL COUNT(AUTO) 3.35 MIL/uL (4.00-5.50); RED CELL DISTRIBUTION WIDTH 13.3 % (11.0-15.5); WHITE BLOOD COUNT (AUTO) 9.2 K/uL (4.8-10.8)
[2020-10-11 05:58] LABS: CREATININE 1.3 mg/dL (0.5-1.5)
[2020-10-11] MEDS: INSULIN HUMULIN R 100 UNIT/ML 3ML SQ SCH ×4 (06:14→20:06)
[2020-10-11 08:00] VITALS: BP 119/53
[2020-10-11] MEDS ORDERED: MIRT-93 PO (08:48)
[2020-10-11] MEDS: NYSTATIN 15 GM POWDER TP SCH ×3 (09:00→20:01)
[2020-10-11] MEDS: DOCUSATE SODIUM 100 MG CAP PO SCH (10:01)
[2020-10-11] MEDS: FUROSEMIDE 40 MG TABLET PO SCH (10:01)
[2020-10-11] MEDS: ATORVASTATIN 20 MG TABLET PO SCH (10:01)
[2020-10-11] MEDS: FAMOTIDINE 20MG TAB PO SCH (10:02)
[2020-10-11] MEDS: CLOPIDOGREL 75MG TAB PO SCH (10:02)
[2020-10-11] MEDS: METOPROLOL SUCCINATE 50 MG TAB.SR.24H PO SCH (10:05)
[2020-10-11] MEDS: ENOXAPARIN SODIUM 30 MG/0.3 ML SQ SCH (10:06)
[2020-10-11 11:46] VITALS: BP 117/48
[2020-10-11] MEDS: 0.9% NACL 250ML IVPB SCH ×2 (12:00)
[2020-10-11 16:00] VITALS: BP 153/57
[2020-10-11] MEDS: VANCOMYCIN 1.25GM/NS 250ML IVPB SCH ×2 (17:58)
[2020-10-11 20:00] VITALS: BP 114/40
[2020-10-11] MEDS: MIRTAZAPINE 15 MG TABLET PO SCH (20:01)
[2020-10-11] MEDS: INSULIN GLARGINE 100 UNITS/ML 10 ML VIAL SQ SCH (20:06)
[2020-10-11] MEDS: Vitamin B Complex/Vit C/Folic Acid PO SCH (20:57)
[2020-10-12] VITALS: BP 137/42
[2020-10-12 04:00] VITALS: BP 138/48
[2020-10-12 05:16] LABS: CREATININE 1.2 mg/dL (0.5-1.5)
[2020-10-12] MEDS: INSULIN HUMULIN R 100 UNIT/ML 3ML SQ SCH ×4 (06:07→21:00)
[2020-10-12 08:00] VITALS: BP 136/62
[2020-10-12] MEDS: FAMOTIDINE 20MG TAB PO SCH (08:35)
[2020-10-12] MEDS: CLOPIDOGREL 75MG TAB PO SCH (08:35)
[2020-10-12] MEDS: ATORVASTATIN 20 MG TABLET PO SCH (08:35)
[2020-10-12] MEDS: DOCUSATE SODIUM 100 MG CAP PO SCH (08:35)
[2020-10-12] MEDS: FUROSEMIDE 40 MG TABLET PO SCH (08:35)
[2020-10-12] MEDS: Vitamin B Complex/Vit C/Folic Acid PO SCH (08:35)
[2020-10-12] MEDS: NYSTATIN 15 GM POWDER TP SCH ×3 (08:36→21:20)
[2020-10-12] MEDS: METOPROLOL SUCCINATE 50 MG TAB.SR.24H PO SCH (08:36)
[2020-10-12] MEDS: ENOXAPARIN SODIUM 30 MG/0.3 ML SQ SCH (08:36)
[2020-10-12 12:00] VITALS: BP 132/38
[2020-10-12] MEDS: 0.9% NACL 250ML IVPB SCH ×2 (12:00)
[2020-10-12 16:00] VITALS: BP 132/80
[2020-10-12] MEDS: VANCOMYCIN KIT 250 ML IV SCH (16:50)
[2020-10-12 20:00] VITALS: BP 162/46
[2020-10-12] MEDS: MIRTAZAPINE 15 MG TABLET PO SCH (20:44)
[2020-10-12] MEDS: TRAMADOL HCL 50 MG TABLET PO SCH (20:51)
[2020-10-12] MEDS: INSULIN GLARGINE 100 UNITS/ML 10 ML VIAL SQ SCH (20:59)
[2020-10-13] VITALS: BP 150/56
[2020-10-13 04:00] VITALS: BP 126/48
[2020-10-13] MEDS: VANCOMYCIN KIT 250 ML IV SCH ×2 (05:17→17:36)
[2020-10-13] MEDS: INSULIN HUMULIN R 100 UNIT/ML 3ML SQ SCH ×4 (05:34→21:25)
[2020-10-13 05:44] LABS: HEMATOCRIT 33.8 % (36-48); MEAN CORPUSCULAR HGB CONC 32.8 g/dL (32.0-36.0); MEAN CORPUSCULAR VOLUME 91.4 fL (79-99); RED BLOOD CELL COUNT(AUTO) 3.7 MIL/uL (4.00-5.50); RED CELL DISTRIBUTION WIDTH 13.2 % (11.0-15.5); WHITE BLOOD COUNT (AUTO) 8.7 K/uL (4.8-10.8)
[2020-10-13 06:00] LABS: CREATININE 0.9 mg/dL (0.5-1.5); POTASSIUM 3.9 mmol/L (3.5-5.1)
[2020-10-13 08:00] VITALS: BP 107/46
[2020-10-13] MEDS: DOCUSATE SODIUM 100 MG CAP PO SCH (10:42)
[2020-10-13] MEDS: FAMOTIDINE 20MG TAB PO SCH (10:42)
[2020-10-13] MEDS: CLOPIDOGREL 75MG TAB PO SCH (10:42)
[2020-10-13] MEDS: METOPROLOL SUCCINATE 50 MG TAB.SR.24H PO SCH (10:42)
[2020-10-13] MEDS: Vitamin B Complex/Vit C/Folic Acid PO SCH (10:43)
[2020-10-13] MEDS: FUROSEMIDE 40 MG TABLET PO SCH (10:44)
[2020-10-13] MEDS: ENOXAPARIN SODIUM 30 MG/0.3 ML SQ SCH (10:45)
[2020-10-13] MEDS: ATORVASTATIN 20 MG TABLET PO SCH (10:45)
[2020-10-13 12:00] VITALS: BP 110/32
[2020-10-13 15:53] LABS: INR 3.02 (0.85-1.15); PROTHROMBIN TIME 29.8 SEC (9.6-11.6)
[2020-10-13 15:55] LABS: PARTIAL THROMBOPLASTIN TIME 35.3 SEC (26.3-35.5)
[2020-10-13 16:00] VITALS: BP 136/41
[2020-10-13 20:00] VITALS: BP 138/52
[2020-10-13] MEDS: TRAMADOL HCL 50 MG TABLET PO SCH (21:00)
[2020-10-13] MEDS: NYSTATIN 15 GM POWDER TP SCH (21:00)
[2020-10-13] MEDS: MIRTAZAPINE 15 MG TABLET PO SCH (21:06)
[2020-10-13] MEDS: INSULIN GLARGINE 100 UNITS/ML 10 ML VIAL SQ SCH (21:25)
[2020-10-13] MEDS: 0.9% NACL 250ML IVPB SCH ×2 (22:09)
[2020-10-14] VITALS (7 sets, daily range): BP systolic 98–144; BP diastolic 44–139
[2020-10-14] MEDS: VANCOMYCIN KIT 250 ML IV SCH ×2 (05:44→16:52)
[2020-10-14] MEDS: INSULIN HUMULIN R 100 UNIT/ML 3ML SQ SCH ×5 (06:14→21:26)
[2020-10-14 06:47] LABS: HEMATOCRIT 36.2 % (36-48); MEAN CORPUSCULAR HEMOGLOBIN 30.3 pg (27.0-33.0); MEAN CORPUSCULAR HGB CONC 31.8 g/dL (32.0-36.0); MEAN CORPUSCULAR VOLUME 95.3 fL (79-99); RED BLOOD CELL COUNT(AUTO) 3.8 MIL/uL (4.00-5.50); RED CELL DISTRIBUTION WIDTH 13.6 % (11.0-15.5); WHITE BLOOD COUNT (AUTO) 8.5 K/uL (4.8-10.8)
[2020-10-14 06:49] LABS: CREATININE 0.9 mg/dL (0.5-1.5); MAGNESIUM 1.2 mg/dL (1.80-2.40); PHOSPHORUS 3.9 mg/dL (2.5-4.9); POTASSIUM 4.5 mmol/L (3.5-5.1)
[2020-10-14] MEDS: METOPROLOL SUCCINATE 50 MG TAB.SR.24H PO SCH (08:35)
[2020-10-14] MEDS: DOCUSATE SODIUM 100 MG CAP PO SCH (08:35)
[2020-10-14] MEDS: FAMOTIDINE 20MG TAB PO SCH (08:35)
[2020-10-14] MEDS: ATORVASTATIN 20 MG TABLET PO SCH (08:35)
[2020-10-14] MEDS: FUROSEMIDE 40 MG TABLET PO SCH (08:35)
[2020-10-14] MEDS: Vitamin B Complex/Vit C/Folic Acid PO SCH (08:36)
[2020-10-14] MEDS: CLOPIDOGREL 75MG TAB PO SCH (08:48)
[2020-10-14] MEDS: ENOXAPARIN SODIUM 30 MG/0.3 ML SQ SCH (08:48)
[2020-10-14] MEDS: NYSTATIN 15 GM POWDER TP SCH ×3 (09:00→21:00)
[2020-10-14] MEDS ORDERED: MAGNESIUM HYDROXIDE 30 ML/UDCUP PO SCH (09:30)
[2020-10-14] MEDS ORDERED: MAGNESIUM 2GM PREMIX 50ML 50 ML IV PRN (09:30)
[2020-10-14] MEDS ORDERED: LIDOCAINE HCL-MPF 1% 2ML VIAL IV PRN (09:30)
[2020-10-14] MEDS ORDERED: POTASSIUM CHLORIDE 20MEQ/100ML 100 ML IV PRN (09:30)
[2020-10-14 10:40] LABS: INR 1.02 (0.85-1.15); PROTHROMBIN TIME 11.1 SEC (9.6-11.6)
[2020-10-14 10:41] LABS: PARTIAL THROMBOPLASTIN TIME 23.4 SEC (26.3-35.5)
[2020-10-14] MEDS: 0.9% NACL 250ML IVPB SCH (12:14)
[2020-10-14] MEDS: MIRTAZAPINE 15 MG TABLET PO SCH (21:20)
[2020-10-14] MEDS: INSULIN GLARGINE 100 UNITS/ML 10 ML VIAL SQ SCH (21:25)
== END 2020-10-15 00:25 | DRG 603 ==
LOC: EDH 17:40 → OBSVTOIN 22:07 → EDHIP 22:07 → 3BH 10-09 00:03
PROVIDERS: ADMIT Internal Medicine Critical Care Medicine; ATTEND Internal Medicine Critical Care Medicine
PROC: 02H633Z Insertion of Infusion Device into Right Atrium, Percutaneous Approach (ICD-10-PCS; principal; 2020-10-14)
DX: L03.116 Cellulitis of left lower limb (principal); I13.0 Hypertensive heart and chronic kidney disease with heart failure and stage 1 through stage 4 chronic kidney disease, or unspecified chronic kidney disease; I50.32 Chronic diastolic (congestive) heart failure; L97.929 Non-pressure chronic ulcer of unspecified part of left lower leg with unspecified severity; E11.51 Type 2 diabetes mellitus with diabetic peripheral angiopathy without gangrene; L03.115 Cellulitis of right lower limb; E11.22 Type 2 diabetes mellitus with diabetic chronic kidney disease; N18.32 Chronic kidney disease, stage 3b; Z68.39 Body mass index [BMI] 39.0-39.9, adult; J44.9 Chronic obstructive pulmonary disease, unspecified; I25.10 Atherosclerotic heart disease of native coronary artery without angina pectoris; I25.5 Ischemic cardiomyopathy; Z95.1 Presence of aortocoronary bypass graft; I87.2 Venous insufficiency (chronic) (peripheral); Z85.51 Personal history of malignant neoplasm of bladder; E78.5 Hyperlipidemia, unspecified; F41.9 Anxiety disorder, unspecified; F32.9 Major depressive disorder, single episode, unspecified; M79.7 Fibromyalgia; Z98.891 History of uterine scar from previous surgery; Z90.710 Acquired absence of both cervix and uterus; Z83.3 Family history of diabetes mellitus; I25.2 Old myocardial infarction; E66.01 Morbid (severe) obesity due to excess calories; I99.8 Other disorder of circulatory system; M81.0 Age-related osteoporosis without current pathological fracture; Z79.4 Long term (current) use of insulin; Z91.041 Radiographic dye allergy status; Z88.1 Allergy status to other antibiotic agents; Z88.8 Allergy status to other drugs, medicaments and biological substances; Z79.899 Other long term (current) drug therapy; Z91.19 Patient's noncompliance with other medical treatment and regimen; M54.9 Dorsalgia, unspecified; G89.29 Other chronic pain; D63.8 Anemia in other chronic diseases classified elsewhere; M19.90 Unspecified osteoarthritis, unspecified site; G51.0 Bell's palsy; Z79.02 Long term (current) use of antithrombotics/antiplatelets
CPT/HCPCS: 36415; 36430; 71045; 72128; 72131; 80048; 80053; 80202; 82948; 83036; 83735; 84100; 84145; 85025; 85027; 85610; 85730; 86140; 87040; 93925; 97039; C1894; G0378; J1650; J1815; J3370; J3490; J7050

== ENCOUNTER → 2021-05-13 | Outpatient (CLI) | payer OTHER ==
[~2021-05-13] MED LIST changes: -ACET-2521 PO; -ASCO500T96 PO; -AZIT500T PO; -CHOL-34 PO; +CLON0.5T4 PO; +CLOP75TA32 PO; -D-ME1POW16 PO; +DOCU100T PO; -FAMO-136 PO; -FLUT16H NASAL; +FOLI0.8T22 PO; -FOLI1TAB85 PO; -FURO20TA4 PO; -GLIP10TA19 PO; +GLIP10TA9 PO; -IPRNEB IH; +LEVO750T46 PO; -LOSA50TA64 PO; -METH4TAB3 PO; +MIRT-93 PO; +VITAD400 GT
== END | disposition home or self-care (01) ==
LOC: CANPRECLI → SHCH 13:37
PROVIDERS: ATTEND Internal Medicine Cardiovascular Disease
DX: I87.2 Venous insufficiency (chronic) (peripheral) (principal); Z95.1 Presence of aortocoronary bypass graft
CPT/HCPCS: 93970

== ENCOUNTER → 2021-06-17 | Outpatient (CLI) | payer OTHER ==
[~2021-06-17] MED LIST changes: +IOHEXOL 350 MG/ML 100ML INFUS..BTL IV ONE; +IOHEXOL-350 50ML VIAL IV ONE
== END | disposition home or self-care (01) ==
LOC: RAH 08:20
PROVIDERS: ATTEND Internal Medicine Cardiovascular Disease
DX: I73.9 Peripheral vascular disease, unspecified (principal); I70.0 Atherosclerosis of aorta; K80.20 Calculus of gallbladder without cholecystitis without obstruction; K43.9 Ventral hernia without obstruction or gangrene; E11.9 Type 2 diabetes mellitus without complications; E78.5 Hyperlipidemia, unspecified; Z95.1 Presence of aortocoronary bypass graft; Z90.710 Acquired absence of both cervix and uterus
CPT/HCPCS: 75635; Q9967 ×2

== ENCOUNTER → 2021-10-05 | Outpatient (CLI) | payer OTHER ==
[~2021-10-05] MED LIST changes: -IOHEXOL 350 MG/ML 100ML INFUS..BTL IV ONE; -IOHEXOL-350 50ML VIAL IV ONE; +LEVO750T39 PO; -LEVO750T46 PO
== END | disposition home or self-care (01) ==
LOC: RAH 13:24
PROVIDERS: ATTEND Psychiatry & Neurology Neurology
DX: M47.812 Spondylosis without myelopathy or radiculopathy, cervical region (principal); M47.816 Spondylosis without myelopathy or radiculopathy, lumbar region; M48.02 Spinal stenosis, cervical region; M48.061 Spinal stenosis, lumbar region without neurogenic claudication; M71.38 Other bursal cyst, other site
CPT/HCPCS: 72141; 72148

== ENCOUNTER → 2021-10-06 | Outpatient (CLI) | payer OTHER | END | disposition home or self-care (01) | LOC: RAH 10:28 | PROVIDERS: ATTEND Psychiatry & Neurology Neurology | DX: E11.42 Type 2 diabetes mellitus with diabetic polyneuropathy (principal); R29.898 Other symptoms and signs involving the musculoskeletal system; G62.89 Other specified polyneuropathies | CPT/HCPCS: 70551 ==

== ENCOUNTER → 2022-11-08 | Outpatient (CLI) | payer OTHER ==
[~2022-11-08] MED LIST changes: +DULA1.5P SQ; +MULT-1283 PO; -VITAD400 GT; +VITAD400 PO
== END | disposition home or self-care (01) ==
LOC: SHCH 15:32
PROVIDERS: ATTEND Internal Medicine Cardiovascular Disease
DX: I25.5 Ischemic cardiomyopathy (principal)
CPT/HCPCS: 93306

== ENCOUNTER → 2022-11-28 | Outpatient (CLI) | payer OTHER ==
[~2022-11-28] VITALS: Ht 152.4 cm; Wt 93.8 kg
[2022-11-28 11:18] LABS: BASOPHILS # (AUTO) 0.07 K/uL (0.00-0.20); BASOPHILS % (AUTO) 0.7 % (0.0-5.0); EOSINOPHILS # (AUTO) 0.29 K/uL (0.00-0.70); EOSINOPHILS % (AUTO) 2.7 % (0.0-8.0); HEMATOCRIT 39.9 % (36-48); IMMATURE GRANULOCYTE ABSOLUTE 0.09 K/uL (0-1); LYMPHOCYTES # (AUTO) 2.7 K/uL (1.0-4.8); MEAN CORPUSCULAR HEMOGLOBIN 29.9 pg (27.0-33.0); MEAN CORPUSCULAR HGB CONC 32.1 g/dL (32.0-36.0); MEAN CORPUSCULAR VOLUME 93.2 fL (79-99); MONOCYTES # (AUTO) 0.8 K/uL (0.1-1.0); MONOCYTES % (AUTO) 7.6 % (3.0-13.0); NEUTROPHILS # (AUTO) 6.7 K/uL (1.8-7.7); NEUTROPHILS % (AUTO) 63.2 % (40.0-77.0); PLATELET COUNT (AUTO) 288 K/uL (130-400); RED BLOOD CELL COUNT(AUTO) 4.28 MIL/uL (4.00-5.50); RED CELL DISTRIBUTION WIDTH 13.9 % (11.0-15.5); WHITE BLOOD COUNT (AUTO) 10.7 K/uL (4.8-10.8)
[2022-11-28 11:28] LABS: POTASSIUM 4.3 mmol/L (3.5-5.1)
[2022-11-28 11:53] LABS: INR 0.94 (0.85-1.15)
[2022-11-28 11:54] LABS: PARTIAL THROMBOPLASTIN TIME 27.3 SEC (26.3-35.5)
[2022-11-28 12:01] VITALS: BP 156/66; PULSE 62; RESP 17
== END | disposition home or self-care (01) ==
LOC: DAH 10:00 → EDSTATUS 12-01 10:00
PROVIDERS: ATTEND Internal Medicine Cardiovascular Disease
DX: I45.10 Unspecified right bundle-branch block (principal); I47.20 Ventricular tachycardia, unspecified; I51.7 Cardiomegaly; I21.9 Acute myocardial infarction, unspecified
CPT/HCPCS: 36415; 80048; 85025; 85610; 85730; 93005

== ENCOUNTER 2022-12-22 05:52 | Day surgery (SDC) | payer OTHER ==
[2022-12-20 13:36] LABS: HEMATOCRIT 40.3 % (36-48); MEAN CORPUSCULAR HEMOGLOBIN 29.7 pg (27.0-33.0); MEAN CORPUSCULAR VOLUME 92.6 fL (79-99); PLATELET COUNT (AUTO) 271 K/uL (130-400); RED BLOOD CELL COUNT(AUTO) 4.35 MIL/uL (4.00-5.50); RED CELL DISTRIBUTION WIDTH 13.8 % (11.0-15.5); WHITE BLOOD COUNT (AUTO) 10.4 K/uL (4.8-10.8)
[2022-12-20 13:44] LABS: CREATININE 0.9 mg/dL (0.5-1.5); POTASSIUM 4.2 mmol/L (3.5-5.1)
[2022-12-20 13:49] LABS: INR 0.96 (0.85-1.15); PROTHROMBIN TIME 11.2 SEC (9.6-11.6)
[2022-12-20 13:50] LABS: PARTIAL THROMBOPLASTIN TIME 27.4 SEC (26.3-35.5)
[2022-12-20 13:52] VITALS: BP 183/72; PULSE 62; RESP 18
[2022-12-20 14:10] LABS: BAND NEUTROPHILS % (MANUAL) 1 % (0-2); EOSINOPHILS % (MANUAL) 4 % (1-6); LYMPHOCYTES % (MANUAL) 35 % (22-44); MAN.DIFF COMMENT-IMPRESSION MANUAL DIFFERENTIAL; MONOCYTES % (MANUAL) 8 % (2-9); PLATELET MORPHOLOGY COMMENT ADEQUATE; SEGMENTED NEUTROPHILS % 52 % (40-70); TOTAL CELLS COUNTED 100
[~2022-12-22] VITALS: Ht 152.4 cm; Wt 93.5 kg
[2022-12-22] VITALS (8 sets, daily range): BP systolic 129–153; BP diastolic 47–79; PULSE 60–73; RESP 13–18
[~2022-12-22 05:52] MED LIST changes: -CLON0.5T4 PO; -GLIP10TA9 PO; +INSU100I35 SQ; -INSU10VI3 SQ; -LEVO750T39 PO; -TRAM50TA4 PO; -VITAD400 PO; +timolol OU
[2022-12-22] MEDS ORDERED: 0.9%NACL 1000ML 1,000 ML IV ONE (06:35)
[2022-12-22] MEDS ORDERED: MEPERIDINE-PF 25 MG/ML SYG ONE ×4 (07:18→10:41)
[2022-12-22] MEDS ORDERED: MIDAZOLAM HCL 1 MG/ML 2ML VIAL ONE ×4 (07:19→10:41)
[2022-12-22] MEDS ORDERED: LIDOCAINE HCL 400MG/20ML VIAL ONE (07:21)
[2022-12-22] MEDS ORDERED: SOLU-MEDROL 125MG VIAL ONE (08:33)
[2022-12-22] MEDS ORDERED: HEPARIN 10,000 UNIT/10ML (1,000 UNIT/ML) VIAL ONE (08:47)
[2022-12-22] MEDS ORDERED: DiphenhydrAMINE HCL 50 MG/ML VIAL ONE (09:43)
[2022-12-22] MEDS ORDERED: LIDOCAINE HCL 1% MDV 50ML VIAL ONE (09:53)
[2022-12-22] MEDS ORDERED: BUPIVACAINE/PF 0.25% 30ML VIAL IJ ONE (09:53)
[2022-12-22] MEDS ORDERED: VANCOMYCIN 1G/250ML KIT 500 ML IV ONE (09:53)
[2022-12-22] MEDS ORDERED: IOHEXOL-350 50ML VIAL IV ONE (10:22)
[2022-12-22] MEDS ORDERED: ACETAMINOPHEN WITH CODEINE 1 TAB TAB PO PRN (11:30)
[2022-12-22] MEDS ORDERED: ACETAMINOPHEN 500 MG TABLET PO PRN (11:30)
[2022-12-22] MEDS ORDERED: TRAM50TA4 PO (11:34)
== END 2022-12-22 15:40 | disposition home or self-care (01) ==
LOC: DAH 05:52
PROVIDERS: ATTEND Internal Medicine Cardiovascular Disease
DX: I25.5 Ischemic cardiomyopathy (principal); I45.10 Unspecified right bundle-branch block; R55 Syncope and collapse; I47.29 Other ventricular tachycardia; I25.2 Old myocardial infarction; I25.10 Atherosclerotic heart disease of native coronary artery without angina pectoris; E78.5 Hyperlipidemia, unspecified; G47.33 Obstructive sleep apnea (adult) (pediatric); E66.01 Morbid (severe) obesity due to excess calories; Z79.01 Long term (current) use of anticoagulants; Z79.899 Other long term (current) drug therapy; Z88.0 Allergy status to penicillin; Z88.8 Allergy status to other drugs, medicaments and biological substances; Z91.040 Latex allergy status; Z90.710 Acquired absence of both cervix and uterus; Z98.891 History of uterine scar from previous surgery; Z98.890 Other specified postprocedural states; Z83.3 Family history of diabetes mellitus; Z83.6 Family history of other diseases of the respiratory system; Z88.3 Allergy status to other anti-infective agents
CPT/HCPCS: 80048; 85025; 85610; 85730; 36415; 93005; 33249; 93620; 82948 ×2; 71045; C1894 ×2; C1721; C1896; C1895; C1730 ×2; J1200; J3490 ×2; J7030; J0665; J2930; J1644 ×2; J2250 ×4; J3370; J2175 ×4; Q9967; A4215; A4222; A4221; A4663; A4216; A4606; A4223 ×3; 99156; 99157